=== PATIENT | female | born 1975 | race Caucasian/White ===

== ENCOUNTER → 2016-11-16 | Outpatient (CLI) | payer BC ==
--- NOTE | 2016-11-18 06:56 | MM ---
Reason for exam: screening (asymptomatic). Last mammogram was performed 1 year and 2 months ago. History: Patient is postmenopausal. Physical Findings: A clinical breast exam by your physician is recommended on an annual basis and results should be correlated with mammographic findings. MG Screening Mammo w CAD Bilateral CC and MLO view(s) were taken. Prior study comparison: September 18, 2015, bilateral MG screening mammo w CAD. April 20, 2013, bilateral digital screening mammo w/CAD. The breast tissue is heterogeneously dense. This may lower the sensitivity of mammography. No significant changes when compared with prior studies. ASSESSMENT: Negative, BI-RAD 1 RECOMMENDATION: Routine screening mammogram of both breasts in 1 year.
== END ==
LOC: RADMAMWWP 07:44
PROVIDERS: ATTEND Obstetrics & Gynecology
DX: Z12.31 Encounter for screening mammogram for malignant neoplasm of breast (principal)

== ENCOUNTER 2017-07-04 08:28 | Emergency (ER) | payer BC ==
[2017-07-04 08:36] VITALS: TEMP 98.2
[2017-07-04] MEDS ORDERED: SODIUM CHLORIDE 0.9% 500 ML IV STA (08:51)
--- NOTE | 2017-07-04 08:54 | ED ---
General Adult HPI - General Chief complaint: Recheck/Abnormal Lab/Rx Stated complaint: High Blood Pressure Time Seen by Provider: 07/04/17 08:36 Source: patient, RN notes reviewed, old records reviewed Mode of arrival: wheelchair Limitations: no limitations - History of Present Illness Initial comments: 41-year-old female presents for evaluation of elevated blood pressure. Patient states she's been taking her blood pressure at home, she's had several readings in the 150s to 160s systolic. This morning her blood pressure was again elevated she went to [facility] and had her blood pressure checked and it was in the 170s over 104. She was advised to present to the emergency department this morning. She did have an appointment with her primary care physician however she canceled this appointment and presented here for evaluation. She has no complaints the time my evaluation. She did have a headache yesterday which is nearly resolved at this time. No chest pain no shortness of breath. No abdominal pain. No nausea vomiting or diarrhea. No fever or chills. No extremity pain or swelling. - Related Data Home Medications Medication Instructions Recorded Confirmed ALPRAZolam [Xanax] 0.25 - 0.5 mg PO DAILY PRN 07/04/17 07/04/17 Ergocalciferol (Vitamin D2) 50,000 unit PO MO 07/04/17 07/04/17 [Vitamin D2] Loratadine-Pseudoeph 10-240 mg 1 tab PO DAILY 07/04/17 07/04/17 [Claritin-D 24 Hr] Multivitamins, Thera [Multivitamin 1 tab PO DAILY 07/04/17 07/04/17 (formulary)] Ranitidine HCl 150 mg PO DAILY 07/04/17 07/04/17 Allergies Allergy/AdvReac Type Severity Reaction Status Date / Time sulfamethoxazole Allergy Rash/Hives Verified 07/04/17 08:57 [From Bactrim] trimethoprim [From Bactrim] Allergy Rash/Hives Verified 07/04/17 08:57 Review of Systems ROS Statement: Those systems with pertinent positive or pertinent negative responses have been documented in the HPI. ROS Other: All systems not noted in ROS Statement are negative. Past Medical History Past Medical History: GERD/Reflux History of Any Multi-Drug Resistant Organisms: None Reported Past Surgical History: Section, Hysterectomy, Orthopedic Surgery Additional Past Surgical History / Comment(s): nasal surgery, right shoulder surgery Past Psychological History: No Psychological Hx Reported Smoking Status: Never smoker Past Alcohol Use History: None Reported Past Drug Use History: None Reported General Exam Limitations: no limitations General appearance: alert, in no apparent distress Head exam: Present: atraumatic, normocephalic Eye exam: Present: normal appearance, PERRL ENT exam: Present: normal exam Neck exam: Present: normal inspection. Absent: tenderness, meningismus Respiratory exam: Present: normal lung sounds bilaterally. Absent: respiratory distress, wheezes Cardiovascular Exam: Present: normal rhythm, tachycardia GI/Abdominal exam: Present: soft. Absent: distended, tenderness Extremities exam: Present: normal inspection, normal capillary refill. Absent: pedal edema, calf tenderness Back exam: Present: normal inspection. Absent: full ROM, tenderness Neurological exam: Present: alert, oriented X3, CN II-XII intact. Absent: motor sensory deficit Psychiatric exam: Present: normal affect, normal mood Skin exam: Present: warm, dry, intact. Absent: cyanosis, diaphoretic Course Vital Signs 07/04/17 08:32 Temperature 98.2 F Pulse Rate 112 H Respiratory 16 Rate Blood Pressure 137/72 O2 Sat by Pulse 98 Oximetry EKG Findings - EKG Comments: EKG Findings:: EKG: Sinus tachycardia, rate of 101, NH interval 120, QRS duration 88, QTC 438, no ST segment elevation or depression. Medical Decision Making - Medical Decision Making 41-year-old female presenting with asymptomatic hypertension. Blood pressure and emergency department is mildly elevated. Patient is somewhat concerned about this, she has been dealing with some stress. It is decided that laboratory studies and basic workup will be obtained. This includes an EKG which is sinus tach at 101 otherwise unremarkable. Chest x-ray which shows normal mediastinum, no pulmonary infiltrates. CBC CMP are unremarkable d-dimer is negative. Blood pressure on reevaluation is normal. Heart rate normalizes to low 90s. She will follow-up with her primary care physician. - Lab Data Result diagrams: 07/04/17 09:01 07/04/17 09:01 Lab Results 07/04/17 07/04/17 07/04/17 Range/Units 09:01 09:01 09:01 WBC 4.8 (3.8-10.6) k/uL RBC 4.51 (3.80-5.40) m/uL Hgb 13.3 (11.4-16.0) gm/dL Hct 40.3 (34.0-46.0) % MCV 89.2 (80.0-100.0) fL MCH 29.6 (25.0-35.0) pg MCHC 33.1 (31.0-37.0) g/dL RDW 12.8 (11.5-15.5) % Plt Count 246 (150-450) k/uL Neutrophils % 71 % Lymphocytes % 20 % Monocytes % 5 % Eosinophils % 2 % Basophils % 0 % Neutrophils # 3.4 (1.3-7.7) k/uL Lymphocytes # 1.0 (1.0-4.8) k/uL Monocytes # 0.2 (0-1.0) k/uL Eosinophils # 0.1 (0-0.7) k/uL Basophils # 0.0 (0-0.2) k/uL PT (9.0-12.0) sec INR (<1.2) APTT (22.0-30.0) sec D-Dimer (<0.60) mg/L FEU Sodium 142 (137-145) mmol/L Potassium 4.2 (3.5-5.1) mmol/L Chloride 106 (98-107) mmol/L Carbon Dioxide 23 (22-30) mmol/L Anion Gap 13 mmol/L BUN 14 (7-17) mg/dL Creatinine 0.70 (0.52-1.04) mg/dL Est GFR (CKD-EPI)AfAm >90 (>60 ml/min/1.73 sqM) Est GFR (CKD-EPI)NonAf >90 (>60 ml/min/1.73 sqM) Glucose 90 (74-99) mg/dL Calcium 9.4 (8.4-10.2) mg/dL Magnesium 1.9 (1.6-2.3) mg/dL Total Bilirubin 0.2 (0.2-1.3) mg/dL AST 22 (14-36) U/L ALT 32 (9-52) U/L Alkaline Phosphatase 74 (38-126) U/L Total Creatine Kinase 62 (30-135) U/L CK-MB (CK-2) <0.2 (0.0-2.4) ng/mL CK-MB (CK-2) Rel Index Total Protein 6.8 (6.3-8.2) g/dL Albumin 4.1 (3.5-5.0) g/dL 07/04/17 Range/Units 09:01 WBC (3.8-10.6) k/uL RBC (3.80-5.40) m/uL Hgb (11.4-16.0) gm/dL Hct (34.0-46.0) % MCV (80.0-100.0) fL MCH (25.0-35.0) pg MCHC (31.0-37.0) g/dL RDW (11.5-15.5) % Plt Count (150-450) k/uL Neutrophils % % Lymphocytes % % Monocytes % % Eosinophils % % Basophils % % Neutrophils # (1.3-7.7) k/uL Lymphocytes # (1.0-4.8) k/uL Monocytes # (0-1.0) k/uL Eosinophils # (0-0.7) k/uL Basophils # (0-0.2) k/uL PT 10.0 (9.0-12.0) sec INR 1.0 (<1.2) APTT 22.2 (22.0-30.0) sec D-Dimer 0.31 (<0.60) mg/L FEU Sodium (137-145) mmol/L Potassium (3.5-5.1) mmol/L Chloride (98-107) mmol/L Carbon Dioxide (22-30) mmol/L Anion Gap mmol/L BUN (7-17) mg/dL Creatinine (0.52-1.04) mg/dL Est GFR (CKD-EPI)AfAm (>60 ml/min/1.73 sqM) Est GFR (CKD-EPI)NonAf (>60 ml/min/1.73 sqM) Glucose (74-99) mg/dL Calcium (8.4-10.2) mg/dL Magnesium (1.6-2.3) mg/dL Total Bilirubin (0.2-1.3) mg/dL AST (14-36) U/L ALT (9-52) U/L Alkaline Phosphatase (38-126) U/L Total Creatine Kinase (30-135) U/L CK-MB (CK-2) (0.0-2.4) ng/mL CK-MB (CK-2) Rel Index Total Protein (6.3-8.2) g/dL Albumin (3.5-5.0) g/dL Disposition Clinical Impression: Asymptomatic hypertension Disposition: HOME SELF-CARE Condition: Good Instructions: Hypertension (ED) Is patient prescribed a controlled substance at d/c from ED?: No Referrals: Angel Gaxiola DO [Primary Care Provider] - 1-2 days Time of Disposition: 10:49
[2017-07-04 09:31] LABS: Basophils % (A) 0 %; Eosinophils # (A) 0.1 k/uL (0-0.7); Eosinophils % (A) 2 %; HCT 40.3 % (34.0-46.0); HGB 13.3 gm/dL (11.4-16.0); Lymphocytes % (A) 20 %; MCH 29.6 pg (25.0-35.0); MCHC 33.1 g/dL (31.0-37.0); MCV 89.2 fL (80.0-100.0); Mean Platelet Volume 6.7; Monocytes # (A) 0.2 k/uL (0-1.0); Monocytes % (A) 5 %; Neutrophils # (A) 3.4 k/uL (1.3-7.7); Neutrophils % (A) 71 %; Platelet Count 246 k/uL (150-450); RBC 4.51 m/uL (3.80-5.40); RDW 12.8 % (11.5-15.5); WBC 4.8 k/uL (3.8-10.6)
[2017-07-04 09:32] LABS: Partial Thromboplastin Time 22.2 sec (22.0-30.0)
[2017-07-04 09:36] LABS: ALT 32 U/L (9-52); AST 22 U/L (14-36); Albumin 4.1 g/dL (3.5-5.0); Alkaline Phosphatase 74 U/L (38-126); Anion Gap 13 mmol/L; Blood Urea Nitrogen 14 mg/dL (7-17); Calcium 9.4 mg/dL (8.4-10.2); Carbon Dioxide 23 mmol/L (22-30); Chloride 106 mmol/L (98-107); Glucose 90 mg/dL (74-99); Magnesium 1.9 mg/dL (1.6-2.3); Potassium 4.2 mmol/L (3.5-5.1); Sodium 142 mmol/L (137-145); Total Bilirubin 0.2 mg/dL (0.2-1.3); Total Protein 6.8 g/dL (6.3-8.2)
[2017-07-04 09:53] LABS: Creatine Kinase 62 U/L (30-135)
[2017-07-04 10:02] LABS: Creatine Kinase MB <0.2 ng/mL (0.0-2.4)
[2017-07-04 10:35] LABS: D-Dimer 0.31 mg/L FEU (<0.60)
[2017-07-04 10:48] VITALS: BP 127/76; PULSE 88; RESP 17
--- NOTE | 2017-07-04 10:54 | XR ---
EXAMINATION TYPE: XR chest 2V DATE OF EXAM: 07/04/2017 COMPARISON: Prior chest x-ray 12/17/2010 HISTORY: Chest pain, hypertension TECHNIQUE: Frontal and lateral views of the chest are obtained. FINDINGS: There is no focal air space opacity, pleural effusion, or pneumothorax seen. The cardiac silhouette size is within normal limits. The osseous structures are intact. There are overlying car diac leads. There is a thoracic spinal curvature. IMPRESSION: No acute cardiopulmonary process.
== END 2017-07-04 11:11 | disposition home or self-care (01) ==
LOC: EC 08:28
DX: I10 Essential (primary) hypertension (principal); K21.9 Gastro-esophageal reflux disease without esophagitis; Z79.899 Other long term (current) drug therapy; Z88.2 Allergy status to sulfonamides
CPT/HCPCS: 36415; 71046; 80053; 82550; 82553; 83735; 85025; 85379; 85610; 85730; 93005; 96360; 99284

== ENCOUNTER → 2017-11-23 | Outpatient (CLI) | payer BC ==
--- NOTE | 2017-11-24 12:38 | MM ---
Reason for exam: screening (asymptomatic). Last mammogram was performed 1 year ago. History: Patient is postmenopausal. Physical Findings: A clinical breast exam by your physician is recommended on an annual basis and results should be correlated with mammographic findings. MG 3D Screening Mammo W/Cad Bilateral CC and MLO view(s) were taken. Prior study comparison: November 16, 2016, bilateral MG screening mammo w CAD. September 18, 2015, bilateral MG screening mammo w CAD. The breast tissue is heterogeneously dense. This may lower the sensitivity of mammography. Finding: There is a stable low density circumscribed round mass in the upper outer quadrant, posterior depth of the left breast. No suspicious abnormality. No significant changes in finding since November 16, 2016 and September 18, 2015. ASSESSMENT: Benign, BI-RAD 2 RECOMMENDATION: Routine screening mammogram of both breasts in 1 year.
== END | disposition home or self-care (01) ==
LOC: RADMAMWWP 07:54
PROVIDERS: ATTEND Obstetrics & Gynecology
DX: Z12.31 Encounter for screening mammogram for malignant neoplasm of breast (principal)
CPT/HCPCS: 77063; 77067

== ENCOUNTER → 2017-12-07 | Outpatient (CLI) | payer BC ==
--- NOTE | 2017-12-07 10:53 | USB ---
Reason for exam: clinical finding. History: Patient is postmenopausal. Physical Findings: Nurse Summary: BB upper outer quadrant (nurse kp). US Breast LT Left complete breast ultrasound includes all four quadrants, the retroareolar region and axilla. Finding demonstrates a 0.7 x 0.7 x 0.3cm oval, cystic lesion at 2 o'clock. These results were verbally communicated with the patient and result sheet given to the patient on 12/07/17. ASSESSMENT: Probably benign, BI-RAD 3 RECOMMENDATION: Ultrasound of the left breast in 6 months.
== END | disposition home or self-care (01) ==
LOC: RADUSWWP 08:07
PROVIDERS: ATTEND Family Medicine
DX: R92.8 Other abnormal and inconclusive findings on diagnostic imaging of breast (principal); N63.21 Unspecified lump in the left breast, upper outer quadrant

== ENCOUNTER → 2018-01-25 | Outpatient (CLI) | payer BC ==
--- NOTE | 2018-01-25 23:00 | MR ---
EXAMINATION TYPE: MR lumbar spine wo con DATE OF EXAM: 01/25/2018 COMPARISON: MRI lumbar spine July 12, 2013 HISTORY: LBP, BLE radic/weakness/numbness x several years TECHNIQUE: Multiplanar, multisequence imaging of the lumbar spine is performed without IV contrast. FINDINGS: Sagittal images of the lumbar spine show vertebral body heights and alignment to appear sat isfactory. Multilevel disc desiccation is present. Moderate disc space narrowing at L5-S1 level is r edemonstrated with posterior disc herniation. Mild disc space L3-L4 level is redemonstrated and stabl e. The conus medullaris is normal in position and signal ending at inferior L1 level. The bone marro w signal intensity is within normal limits. Axial images at T12-L1 level redemonstrates broad-based disc protrusion effacing the anterior thecal sac on axial image 28, bilateral neural foramina are patent. No significant change from prior. Axial images at L1-L2 level remain within normal limits. Axial images at L2-L3 level show mild to moderate broad-based posterior disc protrusion mildly effaci ng anterior thecal sac on axial image 18, bilateral neural foramina remain patent. No significant joan nge from prior. Axial images at L3-L4 level show mild/moderate broad-based posterior disc protrusion mildly effacing anterior thecal sac on axial image 13, bilateral neural foramina remain patent. No significant change from prior. Axial images at the L4-L5 level shows mild facet degenerative changes bilaterally. Mild broad-based posterior disc protrusion is seen minimally effacing anterior thecal sac. There is mild left-sided an terior inferior neural foraminal narrowing. Right-sided neural foramina is patent. Axial images at the L5-S1 level redemonstrate prominent central disc protrusion minimally effacing an terior thecal sac with mild facet degenerative changes bilaterally on axial image 2. Bilateral neural foramina are patent. Small hemangioma posterior L5 vertebral body level is noted sagittal image 11 t o right of midline. No suspicious incidental retroperitoneal findings are seen. IMPRESSION: Multilevel degenerative changes in lumbar spine as detailed above without significant joan nge or progression from 2014 MRI. Largest focal disc herniation is noted L5-S1 level.
== END | disposition home or self-care (01) ==
LOC: RADMRIMAIN 20:04
PROVIDERS: ATTEND Family Medicine
DX: M51.27 Other intervertebral disc displacement, lumbosacral region (principal); M47.816 Spondylosis without myelopathy or radiculopathy, lumbar region
CPT/HCPCS: 72148

== ENCOUNTER → 2018-11-27 | Outpatient (CLI) | payer BC ==
--- NOTE | 2018-11-27 13:18 | MM ---
Reason for exam: screening (asymptomatic). Last mammogram was performed 1 year ago. History: Patient is postmenopausal. Physical Findings: A clinical breast exam by your physician is recommended on an annual basis and results should be correlated with mammographic findings. MG 3D Screening Mammo W/Cad Bilateral CC and MLO view(s) were taken. Prior study comparison: November 23, 2017, bilateral MG 3d screening mammo w/cad. November 16, 2016, bilateral MG screening mammo w CAD. The breast tissue is heterogeneously dense. This may lower the sensitivity of mammography. There is a mammographically stable oval left middle depth mass, cystic on prior ultrasound. No suspicious abnormality. Superior left posterior depth asymmetry is also stable. No significant changes when compared with prior studies. ASSESSMENT: Benign, BI-RAD 2 RECOMMENDATION: Routine screening mammogram of both breasts in 1 year.
== END ==
LOC: RADMAMWWP 07:42
PROVIDERS: ATTEND Obstetrics & Gynecology
DX: Z12.31 Encounter for screening mammogram for malignant neoplasm of breast (principal)
CPT/HCPCS: 77063; 77067

== ENCOUNTER 2019-03-20 21:54 | Emergency (ER) | payer BC ==
[2019-03-20 22:00] VITALS: BP 139/91; PULSE 110; RESP 24
[2019-03-20] MEDS ORDERED: IBUPROFEN 600 MG TAB PO STA (22:13)
[2019-03-20] MEDS ORDERED: SODIUM CHLORIDE 0.9% 500 ML 500 ML IV STA ×2 (22:13→23:40)
[2019-03-20] MEDS ORDERED: SODIUM CHLORIDE 0.9% 1,000 ML IV STA ×2 (22:13)
[2019-03-20] MEDS ORDERED: ACETAMINOPHEN TAB 500 MG TAB PO STA (22:13)
--- NOTE | 2019-03-20 22:13 | ED ---
Fever HPI - General Chief Complaint: Fever Stated Complaint: cough Time Seen by Provider: 03/20/19 22:00 Source: patient, RN notes reviewed, old records reviewed Mode of arrival: ambulatory Limitations: no limitations - History of Present Illness Initial Comments: There is a 43-year-old female DF for evaluation patient closely for evaluation regards to fever. Patient's has had symptoms since Tuesday. He has had again severe fever with cough and diffuse body aches and pains, occasional headache. Patient has not been feeling well. No medical history takes no medications. Today with nausea and vomiting MD Complaint: fever, weakness, other (Cough) -: days(s) Temperature Source: subjective Associated Symptoms: chills, myalgias, headache, cough Treatments Prior to Arrival: none - Related Data Home Medications Medication Instructions Recorded Confirmed ALPRAZolam [Xanax] 0.25 - 0.5 mg PO DAILY PRN 07/04/17 07/04/17 Ergocalciferol (Vitamin D2) 50,000 unit PO MO 07/04/17 07/04/17 [Vitamin D2] Loratadine-Pseudoeph 10-240 mg 1 tab PO DAILY 07/04/17 07/04/17 [Claritin-D 24 Hr] Multivitamins, Thera [Multivitamin 1 tab PO DAILY 07/04/17 07/04/17 (formulary)] RX: Ranitidine HCl 150 mg PO DAILY 07/04/17 07/04/17 Allergies Allergy/AdvReac Type Severity Reaction Status Date / Time sulfamethoxazole Allergy Rash/Hives Verified 03/20/19 21:59 [From Bactrim] trimethoprim [From Bactrim] Allergy Rash/Hives Verified 03/20/19 21:59 Review of Systems ROS Statement: Those systems with pertinent positive or pertinent negative responses have been documented in the HPI. ROS Other: All systems not noted in ROS Statement are negative. Past Medical History Past Medical History: GERD/Reflux History of Any Multi-Drug Resistant Organisms: None Reported Past Surgical History: Back Surgery, Section, Hysterectomy, Orthopedic Surgery Additional Past Surgical History / Comment(s): nasal surgery, right shoulder surgery Past Psychological History: Anxiety Smoking Status: Never smoker Past Alcohol Use History: None Reported Past Drug Use History: None Reported General Exam Limitations: no limitations General appearance: alert, in no apparent distress Head exam: Present: atraumatic, normocephalic, normal inspection Eye exam: Present: normal appearance, PERRL, EOMI. Absent: scleral icterus, conjunctival injection, periorbital swelling ENT exam: Present: normal exam, mucous membranes moist Neck exam: Present: normal inspection. Absent: tenderness, meningismus, lympha denopathy Respiratory exam: Present: normal lung sounds bilaterally. Absent: respiratory distress, wheezes, rales, rhonchi, stridor Cardiovascular Exam: Present: normal rhythm, tachycardia, normal heart sounds. Absent: systolic murmur, diastolic murmur, rubs, gallop, clicks GI/Abdominal exam: Present: soft, normal bowel sounds. Absent: distended, tenderness, guarding, rebound, rigid Extremities exam: Present: normal inspection, full ROM, normal capillary refill. Absent: tenderness, pedal edema, joint swelling, calf tenderness Back exam: Present: normal inspection Neurological exam: Present: alert, oriented X3, CN II-XII intact Psychiatric exam: Present: normal affect, normal mood Skin exam: Present: warm, dry, intact, normal color. Absent: rash Course Vital Signs 03/20/19 03/20/19 21:57 23:19 Temperature 99.9 F H 98.6 F Pulse Rate 110 H Respiratory 24 Rate Blood Pressure 139/91 O2 Sat by Pulse 99 Oximetry - Reevaluation(s) Reevaluation #1: 03/20/19 22:26 Medical records reviewed Reevaluation #2: 03/20/19 23:54 Patient feels significantly improved here in the ER Medical Decision Making - Medical Decision Making 3 female DF for evaluation not feeling well 4-5 days patient is positive for influenza, outside of treatment O 2. Patient given adequate hydration tolerated oral intake in the ER patient can be discharged home - Lab Data Result diagrams: 03/20/19 23:00 03/20/19 23:00 Lab Results 03/20/19 03/20/19 03/20/19 Range/Units 23:00 23:00 23:00 WBC 5.4 (3.8-10.6) k/uL RBC 4.92 (3.80-5.40) m/uL Hgb 14.5 (11.4-16.0) gm/dL Hct 43.3 (34.0-46.0) % MCV 87.9 (80.0-100.0) fL MCH 29.4 (25.0-35.0) pg MCHC 33.4 (31.0-37.0) g/dL RDW 12.3 (11.5-15.5) % Plt Count 261 (150-450) k/uL Neutrophils % 74 % Lymphocytes % 18 % Monocytes % 4 % Eosinophils % 1 % Basophils % 1 % Neutrophils # 4.0 (1.3-7.7) k/uL Lymphocytes # 1.0 (1.0-4.8) k/uL Monocytes # 0.2 (0-1.0) k/uL Eosinophils # 0.1 (0-0.7) k/uL Basophils # 0.1 (0-0.2) k/uL Sodium 136 L (137-145) mmol/L Potassium 3.8 (3.5-5.1) mmol/L Chloride 103 (98-107) mmol/L Carbon Dioxide 20 L (22-30) mmol/L Anion Gap 13 mmol/L BUN 11 (7-17) mg/dL Creatinine 0.62 (0.52-1.04) mg/dL Est GFR (CKD-EPI)AfAm >90 (>60 ml/min/1.73 sqM) Est GFR (CKD-EPI)NonAf >90 (>60 ml/min/1.73 sqM) Glucose 100 H (74-99) mg/dL Plasma Lactic Acid Quentin 1.2 (0.7-2.0) mmol/L Calcium 9.7 (8.4-10.2) mg/dL Total Bilirubin 0.7 (0.2-1.3) mg/dL AST 32 (14-36) U/L ALT 20 (4-34) U/L Alkaline Phosphatase 85 (38-126) U/L Total Protein 8.1 (6.3-8.2) g/dL Albumin 4.7 (3.5-5.0) g/dL Influenza Type A RNA (Not Detectd) Influenza Type B (PCR) (Not Detectd) 03/20/19 Range/Units 23:10 WBC (3.8-10.6) k/uL RBC (3.80-5.40) m/uL Hgb (11.4-16.0) gm/dL Hct (34.0-46.0) % MCV (80.0-100.0) fL MCH (25.0-35.0) pg MCHC (31.0-37.0) g/dL RDW (11.5-15.5) % Plt Count (150-450) k/uL Neutrophils % % Lymphocytes % % Monocytes % % Eosinophils % % Basophils % % Neutrophils # (1.3-7.7) k/uL Lymphocytes # (1.0-4.8) k/uL Monocytes # (0-1.0) k/uL Eosinophils # (0-0.7) k/uL Basophils # (0-0.2) k/uL Sodium (137-145) mmol/L Potassium (3.5-5.1) mmol/L Chloride (98-107) mmol/L Carbon Dioxide (22-30) mmol/L Anion Gap mmol/L BUN (7-17) mg/dL Creatinine (0.52-1.04) mg/dL Est GFR (CKD-EPI)AfAm (>60 ml/min/1.73 sqM) Est GFR (CKD-EPI)NonAf (>60 ml/min/1.73 sqM) Glucose (74-99) mg/dL Plasma Lactic Acid Quentin (0.7-2.0) mmol/L Calcium (8.4-10.2) mg/dL Total Bilirubin (0.2-1.3) mg/dL AST (14-36) U/L ALT (4-34) U/L Alkaline Phosphatase (38-126) U/L Total Protein (6.3-8.2) g/dL Albumin (3.5-5.0) g/dL Influenza Type A RNA Detected H (Not Detectd) Influenza Type B (PCR) Not Detected (Not Detectd) - Radiology Data Radiology results: report reviewed (Chest x-ray is negative for acute disease), image reviewed Disposition Clinical Impression: Influenza, Fever Disposition: HOME SELF-CARE Condition: Good Instructions (If sedation given, give patient instructions): Fever in Adults (ED), Influenza (ED) Is patient prescribed a controlled substance at d/c from ED?: No Referrals: Angel Gaxiola DO [Primary Care Provider] - 1-2 days
[2019-03-20 23:27] LABS: Basophils # (A) 0.1 k/uL (0-0.2); Basophils % (A) 1 %; Eosinophils # (A) 0.1 k/uL (0-0.7); Eosinophils % (A) 1 %; HCT 43.3 % (34.0-46.0); HGB 14.5 gm/dL (11.4-16.0); Lymphocytes % (A) 18 %; MCH 29.4 pg (25.0-35.0); MCHC 33.4 g/dL (31.0-37.0); MCV 87.9 fL (80.0-100.0); Mean Platelet Volume 7.2; Monocytes # (A) 0.2 k/uL (0-1.0); Monocytes % (A) 4 %; Neutrophils % (A) 74 %; Platelet Count 261 k/uL (150-450); RBC 4.92 m/uL (3.80-5.40); RDW 12.3 % (11.5-15.5); WBC 5.4 k/uL (3.8-10.6)
--- NOTE | 2019-03-20 23:32 | XR ---
EXAMINATION TYPE: XR chest 2V DATE OF EXAM: 03/20/2019 COMPARISON: 07/04/2017 HISTORY: Cough TECHNIQUE: FINDINGS: Heart and mediastinum are normal. Lungs are clear. Diaphragm is normal. Bony thorax appears normal. IMPRESSION: Normal chest. No change.
[2019-03-20 23:33] LABS: ALT 20 U/L (4-34); AST 32 U/L (14-36); African American GFR (CKD) >90 (>60 ml/min/1.73 sqM); Albumin 4.7 g/dL (3.5-5.0); Alkaline Phosphatase 85 U/L (38-126); Anion Gap 13 mmol/L; Blood Urea Nitrogen 11 mg/dL (7-17); Calcium 9.7 mg/dL (8.4-10.2); Carbon Dioxide 20 mmol/L (22-30); Chloride 103 mmol/L (98-107); Glucose 100 mg/dL (74-99); Non-African American GFR(CKD) >90 (>60 ml/min/1.73 sqM); Potassium 3.8 mmol/L (3.5-5.1); Sodium 136 mmol/L (137-145); Total Bilirubin 0.7 mg/dL (0.2-1.3); Total Protein 8.1 g/dL (6.3-8.2)
[2019-03-20] MEDS ORDERED: DEXAMETHASONE SOD PHOSPHATE 10 MG/ML 1 ML VIAL IV STA (23:53)
[2019-03-21 00:41] VITALS: TEMP 98.7
== END 2019-03-21 00:41 | disposition home or self-care (01) ==
LOC: EC 21:54
DX: J11.1 Influenza due to unidentified influenza virus with other respiratory manifestations (principal); F41.9 Anxiety disorder, unspecified; K21.9 Gastro-esophageal reflux disease without esophagitis; Z79.899 Other long term (current) drug therapy; Z88.2 Allergy status to sulfonamides; Z88.1 Allergy status to other antibiotic agents
CPT/HCPCS: 36415; 80053; 83605; 85025; 87040; 87502; 71046; 99284; 96374; 96361; J1100

== ENCOUNTER → 2019-11-30 | Outpatient (CLI) | payer BC ==
--- NOTE | 2019-12-04 11:11 | MM ---
Reason for exam: screening (asymptomatic). Last mammogram was performed 1 year ago. History: Patient is postmenopausal. Physical Findings: A clinical breast exam by your physician is recommended on an annual basis and results should be correlated with mammographic findings. MG 3D Screening Mammo W/Cad Bilateral CC and MLO view(s) were taken. Prior study comparison: November 27, 2018, bilateral MG 3d screening mammo w/cad. November 23, 2017, bilateral MG 3d screening mammo w/cad. November 16, 2016, bilateral MG screening mammo w CAD. The breast tissue is heterogeneously dense. This may lower the sensitivity of mammography. There is chronic nodularity in the left breast laterally, apparent on 3D images. No significant changes when compared with prior studies. ASSESSMENT: Negative, BI-RAD 1 RECOMMENDATION: Routine screening mammogram of both breasts in 1 year.
== END | disposition home or self-care (01) ==
LOC: RADMAMWWP 09:54
PROVIDERS: ATTEND Obstetrics & Gynecology
DX: Z12.31 Encounter for screening mammogram for malignant neoplasm of breast (principal)
CPT/HCPCS: 77063; 77067

== ENCOUNTER → 2020-07-18 | Outpatient (CLI) | payer BC ==
--- NOTE | 2020-07-18 12:30 | MR ---
EXAMINATION TYPE: MR lumbar spine wo con DATE OF EXAM: 07/18/2020 COMPARISON: MRI lumbar spine January 25, 2018 HISTORY: Low back pain, radiculopathy TECHNIQUE: Multiplanar, multisequence imaging of the lumbar spine is performed without IV contrast. FINDINGS: Sagittal images of the lumbar spine show vertebral body heights and alignment to remain sta ble and satisfactory. Multilevel disc desiccation is redemonstrated. Moderate to advanced disc space narrowing with vacuum disc phenomenon and heterogeneous Modic type I and type III endplate changes a t L5-S1 level is redemonstrated . The conus medullaris remains normal in position and signal ending a t mid L1 level. Mild multilevel anterior spurring. Axial images at T12-L1 level redemonstrates broad-based disc protrusion effacing the anterior thecal sac on axial image 28, bilateral neural foramina are patent. No significant change from prior. Axial images at L1-L2 level remain within normal limits. Axial images at L2-L3 level redemonstrate mild to moderate broad-based posterior disc protrusion mild ly effacing anterior thecal sac on axial image 18, bilateral neural foramina remain patent. No signif icant change from prior. Axial images at L3-L4 level redemonstrate mild/moderate broad disc bulge mildly effacing anterior the twila sac on axial image 13, bilateral neural foramina remain patent. No significant change from prior. Axial images at the L4-L5 level show mild/moderate left greater than right facet degenerative changes with slight interval progression. Mild broad-based posterior disc protrusion is seen minimally effa cing anterior thecal sac. There is mild left-sided anterior inferior neural foraminal narrowing redem onstrated. Right-sided neural foramina is patent. Axial images at the L5-S1 level show improved central disc protrusion current study. [id number] facet degenerative changes bilaterally left greater than right redemonstrated are felt stable. Bilat eral neural foramina remain patent. Small hemangioma posterior L5 vertebral body level is redemonstra philip sagittal image 11 to right of midline. Spinal canal is preserved currently. No suspicious incidental retroperitoneal findings are seen. Paraspinal muscle bulk is maintained. IMPRESSION: Multilevel degenerative changes in lumbar spine as detailed above with improved disc ana maria iation L5-S1 level. Slightly more prominent facet arthropathy lower lumbar spine otherwise no signifi cant interval degenerative progression from 2018 MRI.
== END | disposition home or self-care (01) ==
LOC: RADMRIMAIN 11:37
PROVIDERS: ATTEND Family Medicine
DX: M47.26 Other spondylosis with radiculopathy, lumbar region (principal); M51.16 Intervertebral disc disorders with radiculopathy, lumbar region; M99.73 Connective tissue and disc stenosis of intervertebral foramina of lumbar region
CPT/HCPCS: 72148

== ENCOUNTER → 2021-01-01 | Outpatient (CLI) | payer BC ==
--- NOTE | 2021-01-05 09:40 | MM ---
Reason for exam: screening (asymptomatic). Last mammogram was performed 1 year and 1 month ago. History: Patient is postmenopausal. Physical Findings: A clinical breast exam by your physician is recommended on an annual basis and results should be correlated with mammographic findings. MG 3D Screening Mammo W/Cad Bilateral CC and MLO view(s) were taken. Prior study comparison: November 30, 2019, bilateral MG 3d screening mammo w/cad. November 27, 2018, bilateral MG 3d screening mammo w/cad. There are scattered fibroglandular densities. There is chronic nodularity in the left breast, no change from 2018 mammogram left upper outer quadrant. There is no new dominant lesion. ASSESSMENT: Benign, BI-RAD 2 RECOMMENDATION: Routine screening mammogram of both breasts in 1 year.
== END | disposition home or self-care (01) ==
LOC: RADMAMWWP 14:52
PROVIDERS: ATTEND Obstetrics & Gynecology
DX: Z12.31 Encounter for screening mammogram for malignant neoplasm of breast (principal)
CPT/HCPCS: 77063; 77067

== ENCOUNTER → 2021-07-01 | Outpatient (CLI) | payer BC, OTHER ==
[2021-07-01 16:36] VITALS: BP 127/85; PULSE 80; TEMP 98.2; BMI 34.9
--- NOTE | 2021-07-01 17:05 | P.HPBAR ---
Bariatric H&P - History & Physicial H&P Date: 07/01/21 History & Physicial: Visit/CC: new patient Patient initial contact: Initial weight: Initial weight in pounds: Height: 5 ft 5.25 in Initial BMI: e Last weight: Current weight: 96.162 kg Current weight in pounds: 212.00 Current BMI: 34.9 [place] body weight (based on NIH guidelines): 57.266 kg Excess body weight loss: The patient is a 45 year-old F who presents for Bariatric Assessment. She is looking into sleeve. She had back surgery in 2019. Back surgery done by Dr. Brady. Recommendations from Jose Antonio for weight loss. No moderate reflux. No stomach cancer. She EGD and colon. She has hip pain on the left side, no knee p ain. No ankle pain. She has feet pain on the left. She has numbness of the left lateral leg. No snoring. Sleep study is negative. She has chronic fatigue. She needs medical supervised weight loss for adipex. Highest weight is present. Past Medical History Past Medical History: GERD/Reflux, Osteoarthritis (OA) History of Any Multi-Drug Resistant Organisms: None Reported Past Surgical History: Back Surgery, Section, Hysterectomy, Orthopedic Surgery Additional Past Surgical History / Comment(s): nasal surgery, right shoulder surgery Past Anesthesia/Blood Transfusion Reactions: No Reported Reaction Past Psychological History: Anxiety Smoking Status: Never smoker Past Alcohol Use History: Occasional Past Drug Use History: None Reported Surgical - Exam Vital Signs Temp Pulse BP 98.2 F 80 127/85 07/01/21 16:27 07/01/21 16:27 07/01/21 16:27 Bariatric Checklist Checklist: Plan: Checklist: EGD: 1. Hiatal hernia: 2. H. Pylori: HgbA1c: Vitamin D: Smoking: Never smoker Primary care physician referral: Dr. Gaxiola Psychiatry clearance: Cardiology clearance: Sleep study: Diet journal: VTE risk score: VTE risk level: Rehab needs at discharge:
== END | disposition home or self-care (01) ==
LOC: BARWHC3 14:57
PROVIDERS: ATTEND Surgery Plastic and Reconstructive Surgery
DX: Z48.815 Encounter for surgical aftercare following surgery on the digestive system (principal)
CPT/HCPCS: 99211

== ENCOUNTER → 2021-08-20 | Outpatient (CLI) | payer BC, OTHER ==
--- NOTE | 2021-08-20 16:39 | XR ---
EXAMINATION TYPE: XR chest 2V DATE OF EXAM: 08/20/2021 COMPARISON: NONE HISTORY: Chest pain TECHNIQUE: Frontal and lateral views of the chest are obtained. FINDINGS: There is no focal air space opacity. No evidence for pneumothorax. No pleural effusion. The cardiac silhouette size is within normal limits. The osseous structures are grossly intact. IMPRESSION: 1. No acute cardiopulmonary process.
== END | disposition home or self-care (01) ==
LOC: RADXRMAIN 16:13
PROVIDERS: ATTEND Family Medicine
DX: U07.1 COVID-19 (principal); J40 Bronchitis, not specified as acute or chronic
CPT/HCPCS: 71046

== ENCOUNTER 2021-08-24 07:29 | Day surgery (SDC) | payer BC, OTHER ==
[2021-08-18 15:56] VITALS: BMI 34.0
[~2021-08-24 07:29] MED LIST: LACTATED RINGERS 1,000 ML IV SCH
--- NOTE | 2021-08-24 07:43 | P.GSHP ---
History of Present Illness H&P Date: 08/24/21 CHIEF COMPLAINT: GERD HISTORY OF PRESENT ILLNESS: The patient is a 45-year-old female who presents reports gastroesophageal reflux disease. Upper endoscopy was offered for further evaluation and management. PAST MEDICAL HISTORY: Please see list. PAST SURGICAL HISTORY: Please see list. MEDICATIONS: Please see list. ALLERGIES: Please see list. SOCIAL HISTORY: No illicit drug use FAMILY HISTORY: No reports of Crohn disease or ulcerative colitis. REVIEW OF ORGAN SYSTEMS: CONSTITUTIONAL: No reports of fevers or chills. GI: Denies any blood in stools or constipation. PHYSICAL EXAM: VITAL SIGNS: Stable GENERAL: Well-developed and pleasant in no acute distress. HEENT: No scleral icterus. Extraocular movements grossly intact. Moist buccal mucosa. NECK: Supple without lymphadenopathy. CHEST: Unlabored respirations. Equal bilateral excursions. CARDIOVASCULAR: Regular rate and rhythm. Distal 2+ pulses. ABDOMEN: Soft, nondistended. MUSCULOSKELETAL: No clubbing, cyanosis, or edema. ASSESSMENT: 1. Gastroesophageal reflux disease PLAN: 1. Recommend proceeding with an upper endoscopy Past Medical History Past Medical History: GERD/Reflux, Osteoarthritis (OA) History of Any Multi-Drug Resistant Organisms: None Reported Past Surgical History: Back Surgery, Section, Hysterectomy, Orthopedic Surgery Additional Past Surgical History / Comment(s): nasal surgery, right shoulder rotator cuff surgery, C/S x 2, left thumb surgery Past Anesthesia/Blood Transfusion Reactions: No Reported Reaction Smoking Status: Never smoker - Past Family History Father Family Medical History: Cancer Additional Family Medical History / Comment(s): lung cancer Medications and Allergies Home Medications Medication Instructions Recorded Confirmed Type ALPRAZolam [Xanax] 0.25 - 0.5 mg PO DAILY PRN 07/04/17 08/18/21 History Loratadine-Pseudoeph 10-240 mg 1 tab PO DAILY PRN 07/04/17 08/18/21 History [Claritin-D 24 Hr] Escitalopram [Lexapro] 10 mg PO DAILY 07/01/21 08/18/21 History Biotin(Dose Unknown) 1 tab PO DAILY 08/18/21 08/18/21 History Vitamin C(Dose Unknown) 1 tab PO DAILY 08/18/21 08/18/21 History Vitamin D(Dose Unknown) 1 tab PO DAILY 08/18/21 08/18/21 History Zinc(Dose Unknown) 1 tab PO DAILY 08/18/21 08/18/21 History Allergies Allergy/AdvReac Type Severity Reaction Status Date / Time sulfamethoxazole Allergy Rash/Hives Verified 08/18/21 15:46 [From Bactrim] trimethoprim [From Bactrim] Allergy Rash/Hives Verified 08/18/21 15:46
[2021-08-24 07:57] VITALS: TEMP 98.2
[2021-08-24] MEDS ORDERED: LIDOCAINE 1% (10MG/ML) FOR IV START INTRADERMA ONE (08:03)
[2021-08-24] MEDS ORDERED: PROPOFOL 10 MG/ML 20 ML VIAL IV ONE (08:30)
[2021-08-24] MEDS ORDERED: LIDOCAINE 2% INJ 20 MG/ML (2 ML VIAL) ONE (08:30)
--- NOTE | 2021-08-24 08:42 | P.PCN ---
Date of Procedure: 08/24/21 Description of Procedure: PREOPERATIVE DIAGNOSIS: Gastroesophageal reflux disease. POSTOPERATIVE DIAGNOSIS: Gastroesophageal reflux disease. Gastritis. OPERATION: Esophagogastroduodenoscopy with biopsies along antrum and duodenum SURGEON: Savanna Jones MD ANESTHESIA: MAC. INDICATIONS: The patient is a 45-year-old female who presents with reflux disease. Benefits and risks of the procedure were described. Informed consent was obtained. DESCRIPTION: The patient was brought into the endoscopy suite and laid in the left lateral decubitus position. An Olympus gastroscope was passed along the posterior oropharynx down to the distal esophagus where the squamocolumnar junction was encountered at 40 cm from the incisors. The stomach was entered and no bile reflux was found. Additional findings are listed below. Biopsies with cold forceps were obtained of the antrum. The first through third portion of the duodenum was examined. Retroflexion of the scope confirmed Hill grade 2 lower esophageal valve. The squamocolumnar junction demonstrated LA grade B erosive esophagitis. The stomach was desufflated. The patient tolerated the procedure well. FINDINGS: Squamocolumnar junction 40 cm from the incisors. Diaphragmatic hiatus at 40 cm. Hill grade 2 lower esophageal valve. LA grade B erosive esophagitis. Biopsies of the duodenum for duodenitis Chronic gastritis with recent bleed RECOMMENDATIONS: Upper endoscopy as needed.
--- NOTE | 2021-08-24 09:03 | P.PCN ---
Date of Procedure: 08/24/21 Description of Procedure: PREOPERATIVE DIAGNOSIS: Colonoscopy screening POSTOPERATIVE DIAGNOSIS: Tubular adenoma splenic flexure Sigmoid diverticulosis Internal hemorrhoids, grade 2 OPERATION: Colonoscopy to the ileocecal valve and appendiceal orifice, cecum Colonoscopy with hot snare polypectomy SURGEON: Savanna Jones MD. ANESTHESIA: MAC. INDICATIONS: The patient is an 45-year-old female who presents colon screening. Benefits and risks were described and informed consent was obtained. DESCRIPTION OF PROCEDURE: The patient had undergone Sutab prep. The patient had been brought into the operating room and laid in the left lateral decubitus position. After adequate intravenous sedation, the rectum was examined with 2% lidocaine jelly. No external hemorrhoids were encountered. The rectal tone was within normal limits. No lesions were palpated in the rectal vault. An Olympus colonoscope was advanced until the cecum, ileocecal valve and appendiceal orifice were clearly viewed. The prep was excellent. Sigmoid diverticulosis was encountered. Colonic polyps were found and removed. No evidence of focal colitis was found. Retroflexion of the scope demonstrated grade 2 internal hemorrhoids without active bleeding or inflammation. The colon was desufflated. The patient had tole rated the procedure well. Withdrawal time was over 6 minutes. FINDINGS: Aronchick preparation quality scale 1 (1-5) Internal hemorrhoids, grade 2 No external hemorrhoids No arteriovenous malformations. Sigmoid diverticulosis Removal of 1 polyps: - Snare polypectomy 50 cm from the anal verge, 8 mm flat villous adenoma polyp, splenic flexure No focal colitis. RECOMMENDATIONS: Repeat colonoscopy 3 years, 2024 Plan - Discharge Summary New Discharge Prescriptions: Continue Loratadine-Pseudoeph 10-240 mg [Claritin-D 24 Hour] 1 tab PO DAILY PRN PRN Reason: allergies ALPRAZolam [Xanax] 0.25 - 0.5 mg PO DAILY PRN PRN Reason: Anxiety Zinc(Dose Unknown) 1 tab PO DAILY Vitamin D(Dose Unknown) 1 tab PO DAILY Vitamin C(Dose Unknown) 1 tab PO DAILY Biotin(Dose Unknown) 1 tab PO DAILY Escitalopram [Lexapro] 10 mg PO DAILY Discharge Medication List ALPRAZolam [Xanax] 0.25 - 0.5 mg PO DAILY PRN 07/04/17 [History] Loratadine-Pseudoeph 10-240 mg [Claritin-D 24 Hour] 1 tab PO DAILY PRN 07/04/17 [History] Escitalopram [Lexapro] 10 mg PO DAILY 07/01/21 [History] Biotin(Dose Unknown) 1 tab PO DAILY 08/18/21 [History] Vitamin C(Dose Unknown) 1 tab PO DAILY 08/18/21 [History] Vitamin D(Dose Unknown) 1 tab PO DAILY 08/18/21 [History] Zinc(Dose Unknown) 1 tab PO DAILY 08/18/21 [History] [facility]ment[facility]Ref[facility] [place] [facility] [place] [facility] Patient Instructions/Handouts: Colorectal Polyps (GEN), Diverticulosis Diet ( GEN), Diverticulosis (DC) Activity/Diet/Wound Care/Special Instructions: Baby colonoscopy 3 years, 2024 Discharge Disposition: HOME SELF-CARE
[2021-08-24 09:20] VITALS: BP 120/84; PULSE 70; RESP 14
== END 2021-08-24 09:36 | disposition home or self-care (01) ==
LOC: ORWHC2ENDO 07:29
PROVIDERS: ATTEND Surgery Plastic and Reconstructive Surgery
DX: Z12.11 Encounter for screening for malignant neoplasm of colon (principal); D12.3 Benign neoplasm of transverse colon; K57.30 Diverticulosis of large intestine without perforation or abscess without bleeding; K64.1 Second degree hemorrhoids; K44.9 Diaphragmatic hernia without obstruction or gangrene; K21.00 Gastro-esophageal reflux disease with esophagitis, without bleeding; K29.50 Unspecified chronic gastritis without bleeding; M19.90 Unspecified osteoarthritis, unspecified site; Z80.1 Family history of malignant neoplasm of trachea, bronchus and lung; Z79.899 Other long term (current) drug therapy; Z88.2 Allergy status to sulfonamides; Z88.3 Allergy status to other anti-infective agents
CPT/HCPCS: 88305; 45385; 43239; J2704; J2001

== ENCOUNTER → 2021-08-31 | Outpatient (CLI) | payer BC, OTHER ==
[2021-08-31 11:54] VITALS: BMI 34.9
== END | disposition home or self-care (01) ==
LOC: BARWHC3 08:35
PROVIDERS: ATTEND Surgery Plastic and Reconstructive Surgery
DX: E66.01 Morbid (severe) obesity due to excess calories (principal); Z71.3 Dietary counseling and surveillance
CPT/HCPCS: 97804

== ENCOUNTER → 2021-09-23 | Outpatient (CLI) | payer BC, OTHER ==
[2021-09-23 16:02] VITALS: BP 141/83; PULSE 82; TEMP 98.6
--- NOTE | 2021-09-23 17:03 | P.BASOAP ---
Subjective Progress Note Date: 09/23/21 She comes in with weight is well. Colonoscopy reviewed. EKG needs cardiac clearance. Labs - beef liver for low copper. Copper supplement. 2 supplement. Consent for sleeve gastrectomy. Adjust all records to reflect BMI over 35. Consent signed. Ht 5'3.75 Objective - Vital Signs Vital signs: Vital Signs Temp 98.6 F 09/23/21 15:58 Pulse 82 09/23/21 15:58 Resp BP 141/83 09/23/21 15:58 Pulse Ox FiO2 Intake & Output 09/22/21 09/23/21 09/23/21 18:59 06:59 18:59 Weight 97.069 kg Assessment/Plan Plan: Date: 09/23/21 Initial Weight: Initial BMI: Current Weight: 97.069 kg Current BMI: 39.1 Type of Surgery: Total Volume in Band: Previous Volume: Volume Removed: Volume Added: Band Size:
[2021-09-23 17:15] VITALS: BMI 37.0
== END | disposition home or self-care (01) ==
LOC: BARWHC3 15:24
PROVIDERS: ATTEND Surgery Plastic and Reconstructive Surgery
DX: E66.01 Morbid (severe) obesity due to excess calories (principal); Z68.39 Body mass index [BMI] 39.0-39.9, adult
CPT/HCPCS: 99211

== ENCOUNTER → 2021-09-24 | Outpatient (CLI) | payer BC, OTHER | END | disposition home or self-care (01) | LOC: LABPAT 15:08 | PROVIDERS: ATTEND Surgery Plastic and Reconstructive Surgery | DX: Z01.812 Encounter for preprocedural laboratory examination (principal) | CPT/HCPCS: 93005 ==

== ENCOUNTER → 2021-10-27 | Outpatient (CLI) | payer BC, OTHER ==
--- NOTE | 2021-10-27 15:13 | P.SLEEP ---
History of Present Illness H&P Date: 10/27/21 This is a 45-year-old female patient, who is coming in to be checked for obstructive sleep apnea. The patient works for the [employer] and [place] and the patient has been taking breaks at noontime where after lunch she feels very sleepy and she takes a nap in her office. This is affecting her functionality and for that reason she is considering another evaluation for sleep apnea. The first evaluation was done through a sleep center in [facility] and the patient has undergone a previous home sleep study that showed no evidence of any sleep apnea. Nevertheless, over the past 5 years, the patient has gained significant amount of weight and she is up to around 40 pounds. She attributes this to a back injury and back surgery which affected her mobility. For now, she is going to bed at around 10 PM and she is waking up 6:30 AM in the morning and she is averaging about 8 hours of sleep. She is waking up tired and not refreshed. She has been the mother of 6 children, 5 brothers and one boy and she has 5 kids at home still. The youngest child is around 13 years old. The patient is quite busy at work. She is also very busy in her home environment. No sleep paralysis. No hallucinations. No cataplexy. No personal or family history of obstructive sleep apnea or narcolepsy. She sleeps on her stomach and she is also interested in undergoing bariatric surgery. No other major comorbidities for which is a nose breather. No alcoholism. No excessive alcohol ingestion. No caffeine intake. Denies waking up choking or gasping for air. No restlessness lower extremities. No nighttime seizures with shortness of breath or chest pain or any other complaints for now. No psychiatric disorder. She has some limited anxiety. No dysuria of depression. No PTSD. No head trauma. No nighttime terrors or agitation. No sleepwalking. No sleep talking. No grinding of the teeth. No restlessness in lower extremities. Review of Systems Constitutional: Reports daytime sleepiness, Reports fatigue, Reports weight gain Eyes: denies as per HPI, denies blurred vision, denies bulging eye, denies decreased vision, denies diplopia, denies discharge, denies dry eye, denies irritation, denies itching, denies pain, denies photophobia, denies loss of peripheral vision, denies loss of vision, denies tunnel vision/blind spots Ears: deny: decreased hearing, ear discharge, earache, tinnitus Ears, nose, mouth and throat: Reports as per HPI Breasts: absent: as per HPI, change in shape, gynecomastia, masses, nipple discharge, pain, skin changes, swelling Cardiovascular: Reports as per HPI Respiratory: Reports snoring Gastrointestinal: Reports as per HPI Genitourinary: Reports as per HPI Menstruation: Reports as per HPI Musculoskeletal: Reports low back pain Musculoskeletal: absent: ankle pain, ankle stiffness, ankle swelling Integumentary: Reports as per HPI Neurological: Reports as per HPI Psychiatric: Reports as per HPI Endocrine: Reports as per HPI, Reports fatigue Hematologic/Lymphatic: Reports as per HPI Allergic/Immunologic: Reports as per HPI Past Medical History Past Medical History: GERD/Reflux, Osteoarthritis (OA) History of Any Multi-Drug Resistant Organisms: None Reported Past Surgical History: Back Surgery, Section, Hysterectomy, Orthopedic Surgery Additional Past Surgical History / Comment(s): nasal surgery, right shoulder rotator cuff surgery, C/S x 2, left thumb surgery Past Anesthesia/Blood Transfusion Reactions: No Reported Reaction Past Psychological History: Anxiety, Depression Smoking Status: Never smoker Past Alcohol Use History: Occasional Past Drug Use History: None Reported - Past Family History Father Family Medical History: Cancer Additional Family Medical History / Comment(s): lung cancer Medications and Allergies Home Medications Medication Instructions Recorded Confirmed Type ALPRAZolam [Xanax] 0.25 - 0.5 mg PO DAILY PRN 07/04/17 09/23/21 History Loratadine-Pseudoeph 10-240 mg 1 tab PO DAILY PRN 07/04/17 09/23/21 History [Claritin-D 24 Hour] Escitalopram [Lexapro] 10 mg PO DAILY 07/01/21 09/23/21 History Biotin(Dose Unknown) 1 tab PO DAILY 08/18/21 09/23/21 History Vitamin C(Dose Unknown) 1 tab PO DAILY 08/18/21 09/23/21 History Vitamin D(Dose Unknown) 1 tab PO DAILY 08/18/21 09/23/21 History Zinc(Dose Unknown) 1 tab PO DAILY 08/18/21 09/23/21 History Allergies Allergy/AdvReac Type Severity Reaction Status Date / Time sulfamethoxazole Allergy Rash/Hives Verified 08/18/21 15:46 [From Bactrim] trimethoprim [From Bactrim] Allergy Rash/Hives Verified 08/18/21 15:46 Physical Exam BP is 145/88, pulse is 82, respirations 16, temperature is 97.1, saturation 97% on room air, height is 5 feet 4 inches and weight is 218 pounds and a body mass index is 36.6 and the [place] scores a 13. The patient has a neck size of 15 inches. The patient appeared well nourished and normally developed. Vital signs as documented. Head exam is unremarkable. No scleral icterus or corneal arcus n oted. Neck is without jugular venous distension, thyromegaly, or carotid bruits. Carotid upstrokes are brisk bilaterally. Lungs are clear to auscultation and percussion. Cardiac exam reveals the PMI to be normally sized and situated. Rhythm is regular. First and second heart sounds normal. No murmurs, rubs or gallops. Abdominal exam reveals normal bowel sounds, no masses, no organomegaly and no aortic enlargement. Extremities are nonedematous and both femoral and pedal pulses are normal.Examination of the skin revealed no evidence of significant rashes, suspicious appearing nevi or other concerning lesions.Neurologically, the patient is awake and alert and the patient does not have any focal neurological deficit. Cranial nerves are essentially intact. Assessment and Plan Plan: Chronic hypersomnia currently under investigation. Previous home sleep study done through an outside sleep center in 2016 was negative for sleep apnea. Nevertheless, the patient has gained in excess of 40 pounds over the past 5 years and she is coming in for evaluation. Obesity with a body mass index of 36.6, considering bariatric surgery Chronic back pain with previous back surgery Chronic anxiety maintained on Xanax on as needed basis Plan We'll proceed with another home sleep study to even with this patient for any underlying existing sleep breathing disorder Weight loss Maintain adequate sleep hygiene measures Maintain a regular sleep schedule We'll continue to follow make further recommendations based on the results of the home sleep study. May consider a formal polysomnogram and the second day MSLT if the home sleep study is negative and doesn't explain the patient's symptoms of chronic sleepiness. Sleep Note - Sleep Note Sleep Note: Temperature: Pulse Rate: Respiratory Rate: Blood Pressure: SpO2: Height: Weight: BMI: Neck Circumference:
== END | disposition home or self-care (01) ==
LOC: SLEEP 14:41
PROVIDERS: ATTEND Internal Medicine Critical Care Medicine
DX: G47.10 Hypersomnia, unspecified (principal)
CPT/HCPCS: 99211

== ENCOUNTER → 2021-11-09 | Outpatient (CLI) | payer BC, OTHER ==
[2021-11-09 14:59] LABS: African American GFR (CKD) 111.1 (60.0-200.0); Albumin 4.2 g/dL (3.8-4.9); Albumin/Globulin Ratio 1.59 (1.60-3.17); Anion Gap 12.1 mmol/L (10.00-18.00); BUN/Creat Ratio 13.58 Ratio (12.00-20.00); Blood Urea Nitrogen 10.1 mg/dL (9.0-27.0); Calcium 9.4 mg/dL (8.7-10.3); Carbon Dioxide 22.8 mmol/L (20.0-27.5); Globulin 2.6 g/dL (1.6-3.3); Non-African American GFR(CKD) 95.9 (60.0-200.0); Potassium 3.8 mmol/L (3.5-5.5); Total Bilirubin 0.3 mg/dL (0.30-1.20); Total Protein 6.8 g/dL (6.2-8.2)
[2021-11-09 15:23] LABS: Basophils # (A) 0.03 X 10*3/uL (0.00-0.10); Basophils % (A) 0.5 %; Eosinophils % (A) 1.8 %; HCT 40.7 % (37.2-46.3); HGB 13.2 g/dL (12.0-15.0); Immature Grans, Automated 0.5 %; Lymphocytes # (A) 1.57 X 10*3/uL (0.90-5.00); MCH 30.7 pg (27.0-32.0); MCHC 32.4 g/dL (32.0-37.0); MCV 94.7 fL (80.0-97.0); Mean Platelet Volume 10.2 fL (9.5-12.2); Monocytes # (A) 0.39 X 10*3/uL (0.20-1.00); NRBC Per 100 WBC 0 /100 WBCS (0.0-0.0); Neutrophils # (A) 3.48 X 10*3/uL (1.80-7.70); Neutrophils % (A) 62.2 %; Platelet Count 306 X 10*3/uL (140-440); RDW 12.6 % (11.5-14.5)
== END | disposition home or self-care (01) ==
LOC: LABPAT 08:11
PROVIDERS: ATTEND Surgery Plastic and Reconstructive Surgery
DX: Z01.812 Encounter for preprocedural laboratory examination (principal)
CPT/HCPCS: 36415; 80053; 85025

== ENCOUNTER 2021-11-16 12:53 | Inpatient (IN) | payer BC, OTHER ==
--- NOTE | 2021-11-16 09:50 | P.GSHP ---
History of Present Illness H&P Date: 11/16/21 CHIEF COMPLAINT: Morbid obesity HISTORY OF PRESENT ILLNESS: Dulce Victoria is a 45-year-old female who comes with lifelong morbid obesity. She is looking into the sleeve gastrectomy. As a result of our obesity, she has osteoarthritis of the hips, feet, neuropathy including back. She completed medical supervised weight loss. At height of 5 feet 3.75 inches, her ideal body weight is 140 pounds. Her highest weight is 287 pounds, body mass index 36.7. She comes in 212 pounds. Her body mass index is 36.7. She is 72 pounds overweight. PAST MEDICAL HISTORY: 1. Morbid obesity due to excess calories, BMI 36.7, initial 2. Gastroesophageal reflux disease 3. Osteoarthritis hip, left 4. Osteoarthritis feet, left 5. Neuropathy 6. Chronic fatigue PAST SURGICAL HISTORY: 1. Back surgery 2. Hysterectomy 3. Shoulder surgery, right 4. Nasal surgery 5. section HOME MEDICATIONS: Home Medications Medication Instructions Recorded Confirmed ALPRAZolam [Xanax] 0.25 - 0.5 mg PO DAILY PRN 07/04/17 09/23/21 Loratadine-Pseudoeph 10-240 mg 1 tab PO DAILY PRN 07/04/17 09/23/21 [Claritin-D 24 Hour] Escitalopram [Lexapro] 10 mg PO DAILY 07/01/21 09/23/21 Biotin(Dose Unknown) 1 tab PO DAILY 08/18/21 09/23/21 Vitamin C(Dose Unknown) 1 tab PO DAILY 08/18/21 09/23/21 Vitamin D(Dose Unknown) 1 tab PO DAILY 08/18/21 09/23/21 Zinc(Dose Unknown) 1 tab PO DAILY 08/18/21 09/23/21 ALLERGIES: Allergies Allergy/AdvReac Type Severity Reaction Status Date / Time sulfamethoxazole Allergy Rash/Hives Verified 08/18/21 15:46 [From Bactrim] trimethoprim [From Bactrim] Allergy Rash/Hives Verified 08/18/21 15:46 SOCIAL HISTORY: Denies tobacco use. FAMILY HISTORY: No family history of ulcerative colitis disease or Crohn's disease. Family history of morbid obesity. No lupus in the family. No reports of stomach or esophageal cancer. REVIEW OF ORGAN SYSTEMS: CONSTITUTIONAL: At height of 5 feet 3.75 inches, her ideal body weight is 140 pounds. Her highest weight is 287 pounds, body mass index 36.7. She comes in 212 pounds. Her body mass index is 36.7. She is 72 pounds overweight. HEENT: Denies any active troubles with vision or hearing. ENDOCRINE: Denies diabetes. Denies hypothyroidism. CARDIOVASCULAR: Denies past reports of palpitations or heart attacks or chest pain. RESPIRATORY: Has daytime somnolence and snores. GASTROINTESTINAL: Denies any bright red blood per rectum. No diarrhea. No constipation. Has gastroesophageal reflux disease. GENITOURINARY: Denies bladder urgency. No recent blood in urine MUSCULOSKELETAL: Has lower back pain and joint pain. NEURO: Denies migraines. No seizure disorders. PSYCH: Has depression. No suicidal ideation. Has anxiety. RHEUMATOLOGIC: No lupus. No rheumatoid arthritis. HEMATOLOGIC: Denies any abnormal bleeding or bruising. Denies past history of DVTs. SKIN: No rash. No skin cancer. PHYSICAL EXAM: VITAL SIGNS: Height 5 foot 3.75 inches, weight 212 pounds. BMI 36.7 GENERAL: Well-developed in no acute distress. HEENT: No scleral icterus. Extraocular movements grossly intact. Hears conversational speech. No nasal drainage. NECK: Supple without lymphadenopathy. CHEST: Nonlabored respirations with equal bilateral excursions. CARDIOVASCULAR: Regular rate and regular rhythm. Distal 2+ pulses. ABDOMEN: Obese, soft, nontender, nondistended. MUSCULOSKELETAL: No clubbing, cyanosis. NEURO: No focal or lateralizing signs. Cranial nerves 2 through 12 grossly within normal limits. PSYCH: Appropriate affect. Alert and oriented to person, place and time. SKIN: Good skin turgor. Well perfused. ASSESSMENT: 1. Morbid obesity due to excess calories, BMI 36.7, initial 2. Gastroesophageal reflux disease 3. Osteoarthritis hip, left 4. Osteoarthritis feet, left 5. Neuropathy 6. Chronic fatigue PLAN: 1. Bariatric options between a sleeve, band and a Hermann-en-Y gastric bypass were reviewed in detail. The patient elected for a sleeve gastrectomy. Robotic assisted approach described. 2. The [place] [facility] Data was also reviewed with benefits and risks as described. 3. An 8 page second-generation bariatric consent form was reviewed in detail including potential of bleeding, infection, leaks, adequate weight loss, nutritional deficiencies which the patient demonstrated understanding of the risks. 4. A 2 week high-protein low caloric 800 kcal diet described to address hepatomegaly. 5. Preoperative labs including complete metabolic panel and CBC with type and screen recommended. 6. DVT prophylaxis per [place] [facility]. 7. Antibiotic prophylaxis. 8. Inpatient hospitalization anticipated for more than 2 nights. 9. All questions and concerns were addressed with the patient. 10. The patient is at elevated risk for perioperative complications with sleep apnea and hypertensive heart disease. 11. Overall, patient has expressed understanding of bariatric care including postoperative diet and commitment of lifestyle. Patient should benefit from surgical intervention for correction of morbid obesity. Past Medical History Past Medical History: GERD/Reflux, Osteoarthritis (OA) History of Any Multi-Drug Resistant Organisms: None Reported Past Surgical History: Back Surgery, Section, Hysterectomy, Orthopedic Surgery Additional Past Surgical History / Comment(s): nasal surgery, right shoulder rotator cuff surgery, C/S x 2, left thumb surgery Past Anesthesia/Blood Transfusion Reactions: No Reported Reaction Past Psychological History: Anxiety, Depression Smoking Status: Never smoker Past Alcohol Use History: Occasional Past Drug Use History: None Reported - Past Family History Father Family Medical History: Cancer Additional Family Medical History / Comment(s): lung cancer Medications and Allergies Home Medications Medication Instructions Recorded Confirmed Type ALPRAZolam [Xanax] 0.25 - 0.5 mg PO DAILY PRN 07/04/17 11/11/21 History Escitalopram [Lexapro] 10 mg PO DAILY 07/01/21 11/11/21 History Allergies Allergy/AdvReac Type Severity Reaction Status Date / Time sulfamethoxazole Allergy Rash/Hives Verified 11/11/21 09:29 [From Bactrim] trimethoprim [From Bactrim] Allergy Rash/Hives Verified 11/11/21 09:29
[~2021-11-16 12:53] MED LIST changes: +CHLORHEXIDINE GLUCONATE 15 ML CUP MUCOUS MEM PRN; +DEXAMETHASONE SOD PHOSPHATE 4 MG/ML 1 ML VIAL IV ONE; +ENOXAPARIN 40 MG/0.4 ML SYRINGE SQ PRN; +HYDROmorphone 0.5 MG/0.5 ML SYRINGE IVP PRN; -LACTATED RINGERS 1,000 ML IV SCH; +LIDOCAINE 1% (10MG/ML) FOR IV START INTRADERMA PRN; +ONDANSETRON 4 MG/2 ML VIAL IVP ONE; +PANTOPRAZOLE 40 MG/10 ML VIAL IVP PRN; +SCOPOLAMINE 1 MG/72 HR PATCH TRANSDERM ONE
[2021-11-16] MEDS: LACTATED RINGERS 1,000 ML IV SCH (13:25)
[2021-11-16] MEDS ORDERED: SUCCINYLCHOLINE CHLORIDE 200 MG/10 ML VIAL IV ONE (14:44)
[2021-11-16] MEDS ORDERED: NEOSTIGMINE 1 MG/ML 10 ML VIAL ONE (14:44)
[2021-11-16] MEDS ORDERED: HYDROmorphone (PF) 1 MG/ML ONE (14:44)
[2021-11-16] MEDS ORDERED: ROCURONIUM 10 MG/ML (5 ML VIAL) IV ONE (14:44)
[2021-11-16] MEDS ORDERED: fentaNYL (PF) 50 MCG/ML 2 ML AMP ONE (14:44)
[2021-11-16] MEDS ORDERED: LIDOCAINE 2% INJ 20 MG/ML (2 ML VIAL) ONE (14:44)
[2021-11-16] MEDS ORDERED: MIDAZOLAM 2 MG/2 ML VIAL ONE (14:44)
[2021-11-16] MEDS ORDERED: GLYCOPYRROLATE 0.2 MG/ML 2 ML VIAL ONE (14:44)
[2021-11-16] MEDS ORDERED: PROPOFOL 10 MG/ML 20 ML VIAL IV ONE (14:44)
[2021-11-16] MEDS ORDERED: PHENYLEPHRINE-0.9% NACL SYG 1,000 MCG/10 ML SYRINGE ONE (14:44)
[2021-11-16] MEDS ORDERED: BUPIVACAINE (PF) 0.25% 30 ML VIAL SQ ONE (15:25)
[2021-11-16] MEDS ORDERED: LACTATED RINGERS 1,000 ML IV ONE (16:11)
[2021-11-16] MEDS ORDERED: HYDROmorphone 0.5 MG/0.5 ML SYRINGE IVP ONE ×2 (16:46→17:24)
[2021-11-16] MEDS ORDERED: NALOXONE 0.4 MG/ML 1 ML VIAL IV PRN ×2 (16:59→17:02)
[2021-11-16] MEDS ORDERED: fentaNYL PCA 500 MCG/50 ML BAG IV PRN (17:02)
[2021-11-16] MEDS ORDERED: SODIUM CHLORIDE 0.9% 1,000 ML IV ONE (17:02)
[2021-11-16] MEDS ORDERED: LORazepam 2 MG/ML INJ IV PRN (17:04)
--- NOTE | 2021-11-16 17:12 | P.OP ---
Date of Procedure: 11/16/21 Description of Procedure: SURGEON: DOUGLAS VITAL MD PREOPERATIVE DIAGNOSES: 1. Morbid obesity due to excess calories, BMI 36.7, initial 2. Gastroesophageal reflux disease 3. Osteoarthritis hip, left 4. Osteoarthritis feet, left 5. Neuropathy 6. Chronic fatigue POSTOPERATIVE DIAGNOSES: 1. Morbid obesity due to excess calories, BMI 36.7, initial 2. Gastroesophageal reflux disease 3. Osteoarthritis hip, left 4. Osteoarthritis feet, left 5. Neuropathy 6. Chronic fatigue OPERATION: 1. Robotic assisted daVinci Xi laparoscopic sleeve gastrectomy with 40-Mauritian bougie, multiport. 2. Intraoperative esophagogastroduodenoscopy. ANESTHESIA: Gen. local anesthetic ESTIMATED BLOOD LOSS: 5 mL SPECIMENS REMOVED: Sleeve gastrectomy COMPLICATIONS: None. FINDINGS: 1. Negative intraoperative esophagogastrojejunoscopy leak test. 2. No hepatomegaly and no large hiatus hernia. 3. Total of 5 staplers used including 1 - 60 mm green robot arely and 4 - 60 mm blue robot loads used to create the gastric sleeve. 4. Sleeve gastrectomy, 24 x 4 cm INDICATIONS: Dulce Victoria is a 45-year-old female who comes with lifelong morbid obesity. She is looking into the sleeve gastrectomy. As a result of our obesity, she has osteoarthritis of the hips, feet, neuropathy including back. She completed medical supervised weight loss. At height of 5 feet 3.75 inches, her ideal body weight is 140 pounds. Her highest weight is 287 pounds, body mass index 36.7. She comes in 212 pounds. Her body mass index is 36.7. She is 72 pounds overweight. All surgical options for morbid obesity had been described using the [place] bariatric surgery collaborative comorbidity resolution including complication risk score. A second-generation bariatric consent form was described in detail including the possibility of protein malnutrition, leaks, gastric stricture, venous thrombosis, gastroesophageal reflux disease, need for further surgery for which she demonstrated understanding. Benefits and risks of the procedure were described at length. Informed consent was obtained. DESCRIPTION: The patient was brought into the operating room theater. Preoperatively she had received Lovenox subcutaneously for DVT prophylaxis. Additionally she had Peridex oral solution as an oral decontaminant. After general induction, the abdomen was prepped and draped in standard sterile fashion. An Ioban draping was placed along the abdomen. A robotic da Azeb Xi system was prepped and primed. At 15 cm from the xiphoid, proposed port sites were marked with indelible marker along the anterior axillary line bilaterally, mid axillary line bilaterally with each ports were marked 10 to 15 cm from each other. The robotic stapler port was marked for the right midclavicular line. A 5 mm 0 degrees laparoscopic trocar entry was performed along the left upper quadrant. The abdomen was insufflated to 15 mmHg pressure was tolerated well. Diagnostic laparoscopy demonstrated no injury to bowel, viscera, or mesentery. No evidence of large hiatus hernia was identified. The liver edge was sharp consistent with 2 week low-carb high-protein diet. A 8 mm port was placed along the left upper abdominal wall after exchanging the 5 mm port. A separate 8 mm port was placed along the left lateral abdominal wall. Please note that the ports were placed at least 20 cm away from the target anatomy. Care was taken to check each robotic arms were safely away from collision with the bed or the patient. At the epigastrium, a medium sized Hood liver retractor was placed under direct visualization with the [employer] Services Account Manager placed under the right shoulder of the patient. Next, 12-mm robot stapler port was placed along the right upper quadrant. The camera 8-mm port was maintained along the epigastrium. The patient was repositioned in reverse Trendelenburg position at 21-degrees after lowering the bed. The robot was docked along the left side of the patient. Using a grasper for arm 4, a vessel sealer for arm 3, including grasper for arm 1, the robotic system was docked and primed as described. Instruments were interchanged by the assistant corporate controller for stapler loads. The camera was placed at 30- degrees down. I had sat at the console. The pylorus was identified and 6 cm proximally along the greater curvature of the stomach, the short gastrics were mobilized upwards to the angle of His using a vessel sealer. Hemostasis was excellent during this portion of the procedure. Next, the upper pole of the stomach was adherent to the left rod, which was gently dissected free using atraumatic grasper. I went to the head of the bed and placed 40-Mauritian blunt bougie into the stoma ch. The bougie was readjusted by the nurse nutrition faculty member. Robotic stapler green load 60 mm 1 followed by blue 60 mm x 4 loads were used to create the sleeve. Initial firing was across the antrum of the stomach towards the angle of His. The staple line was linear without corkscrewing. The space from the angularis incisura of the sleeve was approximately 4 cm. I then went to the head of the bed to perform the intraoperative esophagogastroduodenoscopy leak test. The bougie was withdrawn. The upper pole of the stomach was bathed using normal saline solution. The scope was withdrawn with careful inspection along the staple line for which no leaks were found along the entire length. Additionally,the sleeve was completely hemostatic without any encroachment along the angularis incisura. Its topology was a soft "J". No stricture was encountered upon placement of the scope. The GI tract was desufflated. The patient tolerated this portion of the procedure well. The scope was completely withdrawn. The robot was undocked. I then rescrubbed into case, whereby the irrigation fluid was aspirated from the abdominal cavity. Tisseel fibrin sealant was placed along the entire staple length. Once dried the Hood liver retractor was removed. Attention was now brought to removal of the specimen. The distal end of the sleeve gastrectomy specimen was brought out through the 12 mm port at the left upper quadrant. The specimen was gently removed en total. No contamination had occurred during this process. All instruments and pneumoperitoneum including irrigation fluid was removed from the abdominal cavity. The 12 mm port site was closed using 0-Vicryl and Otto Plummer and irrigated with diluted hydrogen peroxide. The final incisions were closed using subcuticular interrupted suture of 4-0 Monocryl. Exofin was applied to the skin once the skin had been cleansed. OptiFoam dressing was placed along the stomach extraction site. The sleeve specimen was measured and checked also for leaks which none were found. At the end of the procedure, needle, sponge, and instrument count was verified correct by the surgical services tech. The patient was taken to the postanesthesia care unit in stable condition. She had tolerated the procedure well. Intraoperative films and findings were reviewed with the patient's family.
[2021-11-16] MEDS: ALBUTEROL NEBULIZED 2.5 MG/3 ML INHALATION SCH (19:24)
[2021-11-16] MEDS ORDERED: DEXAMETHASONE SOD PHOSPHATE 10 MG/ML 1 ML VIAL IVP ONE (20:00)
[2021-11-16] MEDS: 0.9% NACL WITH KCL 20 MEQ/L 1,000 ML IV SCH (20:53)
[2021-11-16] MEDS: METOCLOPRAMIDE 5 MG/ML 2 ML VIAL IVP SCH (20:54)
[2021-11-16] MEDS: PANTOPRAZOLE 40 MG/10 ML VIAL IV SCH (20:54)
[2021-11-16] MEDS: DEXAMETHASONE SOD PHOSPHATE 4 MG/ML 1 ML VIAL IVP SCH (20:55)
[2021-11-16] MEDS: ONDANSETRON 4 MG/2 ML VIAL IVP SCH (20:55)
[2021-11-16] MEDS: HYOSCYAMINE ORAL DROPS 1.875 MG/15 ML BOTTLE PO SCH (21:10)
[2021-11-16] MEDS: SIMETHICONE 40 MG/0.6 ML DROPS 2,000 MG/30 ML BOTTLE PO SCH (21:11)
[2021-11-16] MEDS: ACETAMINOPHEN IV (For NPO) 1,000 MG in EMPTY BAG 1 BAG IVPB SCH (21:11)
[2021-11-17] MEDS: METOCLOPRAMIDE 5 MG/ML 2 ML VIAL IVP SCH ×3 (01:28→12:19)
[2021-11-17] MEDS: ACETAMINOPHEN IV (For NPO) 1,000 MG in EMPTY BAG 1 BAG IVPB SCH ×3 (01:58→12:20)
[2021-11-17] MEDS: ONDANSETRON 4 MG/2 ML VIAL IVP SCH ×3 (02:01→12:20)
[2021-11-17] MEDS: DEXAMETHASONE SOD PHOSPHATE 4 MG/ML 1 ML VIAL IVP SCH ×3 (02:02→12:19)
[2021-11-17] MEDS: SIMETHICONE 40 MG/0.6 ML DROPS 2,000 MG/30 ML BOTTLE PO SCH ×3 (02:02→12:21)
[2021-11-17] MEDS: HYOSCYAMINE ORAL DROPS 1.875 MG/15 ML BOTTLE PO SCH ×3 (02:09→12:21)
[2021-11-17] MEDS: 0.9% NACL WITH KCL 20 MEQ/L 1,000 ML IV SCH ×2 (03:36→05:34)
[2021-11-17] MEDS ORDERED: 0.9% NACL WITH KCL 20 MEQ/L 1,000 ML IV SCH (08:00)
[2021-11-17] MEDS: LACTATED RINGERS 1,000 ML IV SCH (08:16)
--- NOTE | 2021-11-17 08:42 | FL ---
EXAMINATION TYPE: FL UGI DATE OF EXAM: 11/17/2021 LIMITED UGI: CLINICAL HISTORY: Obesity, gastric sleeve surgery yesterday. TECHNIQUE: Limited esophagram is performed utilizing 30 oz of Isovue-300. A total of 24 seconds of f luoroscopic time was utilized during procedure and 19 images obtained. COMPARISON: Prior esophagram December 25, 2015. FINDINGS: The patient swallowed contrast without difficulty or delay. Esophageal peristalsis and mo tility are within normal limits. There is good flow of contrast along the diaphragmatic hiatus into proximal stomach and subsequent flow through proximal anastomosis into gastric sleeve. There is good flow from distal sleeve and anastomosis into pylorus and duodenal sweep. Patient remains asymptomatic . There is no evidence of contrast extravasation to suggest leak. IMPRESSION: No evidence of leak or significant obstruction status post recent gastric sleeve surgery.
[2021-11-17] MEDS: ALBUTEROL NEBULIZED 2.5 MG/3 ML INHALATION SCH ×2 (08:56→12:13)
[2021-11-17] MEDS ORDERED: ENOXAPARIN 40 MG/0.4 ML SYRINGE SQ SCH (09:00)
[2021-11-17] MEDS ORDERED: ESCITALOPRAM 10 MG TAB PO SCH (09:00)
[2021-11-17] MEDS: PANTOPRAZOLE 40 MG/10 ML VIAL IV SCH (09:06)
[2021-11-17 10:40] LABS: Basophils # (A) 0 X 10*3/uL (0.00-0.10); Basophils % (A) 0 %; Eosinophils # (A) 0.01 X 10*3/uL (0.04-0.35); Eosinophils % (A) 0.1 %; HCT 32.6 % (37.2-46.3); HGB 10.9 g/dL (12.0-15.0); Immature Grans, Automated 0.3 %; Lymphocytes # (A) 0.45 X 10*3/uL (0.90-5.00); Lymphocytes % (A) 6.2 %; MCH 30.9 pg (27.0-32.0); MCHC 33.4 g/dL (32.0-37.0); MCV 92.4 fL (80.0-97.0); Mean Platelet Volume 10.2 fL (9.5-12.2); Monocytes # (A) 0.06 X 10*3/uL (0.20-1.00); Monocytes % (A) 0.8 %; NRBC Per 100 WBC 0 /100 WBCS (0.0-0.0); Neutrophils # (A) 6.68 X 10*3/uL (1.80-7.70); Neutrophils % (A) 92.6 %; Platelet Count 307 X 10*3/uL (140-440); RBC 3.53 X 10*6/uL (4.10-5.20); RDW 12.4 % (11.5-14.5); WBC 7.22 X 10*3/uL (4.50-10.00)
[2021-11-17 11:15] LABS: African American GFR (CKD) 125.8 (60.0-200.0); Anion Gap 13.7 mmol/L (10.00-18.00); Blood Urea Nitrogen 9.8 mg/dL (9.0-27.0); Calcium 8.3 mg/dL (8.7-10.3); Carbon Dioxide 17.3 mmol/L (20.0-27.5); Non-African American GFR(CKD) 108.5 (60.0-200.0); Phosphorus 2.7 mg/dL (2.4-5.1); Potassium 4.4 mmol/L (3.5-5.5)
[2021-11-17 11:33] VITALS: BMI 36.3
[2021-11-17] MEDS ORDERED: KETOROLAC 15 MG/ML 1 ML VIAL IVP SCH (12:30)
[2021-11-17 15:46] VITALS: BP 122/69; PULSE 74; RESP 16; TEMP 98.1
--- NOTE | 2021-11-17 16:26 | P.DS ---
Providers Date of admission: 11/16/21 16:59 Expected date of discharge: 11/17/21 Attending physician: Savanna Jones Primary care physician: Angel [facility] Course: POSTOPERATIVE DIAGNOSES: 1. Morbid obesity due to excess calories, BMI 36.7, initial 2. Gastroesophageal reflux disease 3. Osteoarthritis hip, left 4. Osteoarthritis feet, left 5. Neuropathy 6. Chronic fatigue INDICATIONS: Dulce Victoria is a 45-year-old female who comes with lifelong morbid obesity. She underwent sleeve gastrectomy without complications. Esophagram and reviewed without leak or obstruction. She is tolerating liquids. She was ambulating. Pain was well-controlled. Telephone discussion with the nurse performed prior to discharge. Discharge instructions: Medical reconciliation was performed and reviewed. Follow-up in the bariatric center in 3 days described. All questions were addressed. Patient was stable for discharge. Procedures: OPERATION: 1. Robotic assisted daVinci Xi laparoscopic sleeve gastrectomy with 40-Czech bougie, multiport. 2. Intraoperative esophagogastroduodenoscopy. ANESTHESIA: Gen. local anesthetic ESTIMATED BLOOD LOSS: 5 mL SPECIMENS REMOVED: Sleeve gastrectomy COMPLICATIONS: None. FINDINGS: 1. Negative intraoperative esophagogastrojejunoscopy leak test. 2. No hepatomegaly and no large hiatus hernia. 3. Total of 5 staplers used including 1 - 60 mm green robot arely and 4 - 60 mm blue robot loads used to create the gastric sleeve. 4. Sleeve gastrectomy, 24 x 4 cm Patient Condition at Discharge: Good Plan - Discharge Summary Discharge Rx Participant: Yes New Discharge Prescriptions: New bisacodyL [Dulcolax] 5 mg PO DAILY PRN #10 tab PRN Reason: Constipation Acetaminophen Tab [Tylenol Tab] 1,000 mg PO Q6HR PRN #30 tablet PRN Reason: Pain Simethicone 40 mg/0.6 ml Drops [Mylicon Drops] 40 mg PO PCHS PRN #30 ml PRN Reason: Gas Omeprazole [PriLOSEC] 40 mg PO DAILY #30 cap Ondansetron Odt [Zofran Odt] 4 mg PO Q8HR PRN #9 tab PRN Reason: Nausea Continue ALPRAZolam [Xanax] 0.25 - 0.5 mg PO DAILY PRN PRN Reason: Anxiety Escitalopram [Lexapro] 10 mg PO DAILY Discharge Medication List ALPRAZolam [Xanax] 0.25 - 0.5 mg PO DAILY PRN 07/04/17 [History] Escitalopram [Lexapro] 10 mg PO DAILY 07/01/21 [History] Acetaminophen Tab [Tylenol Tab] 1,000 mg PO Q6HR PRN #30 tablet 11/17/21 [Rx] Omeprazole [PriLOSEC] 40 mg PO DAILY #30 cap 11/17/21 [Rx] Ondansetron Odt [Zofran Odt] 4 mg PO Q8HR PRN #9 tab 11/17/21 [Rx] Simethicone 40 mg/0.6 ml Drops [Mylicon Drops] 40 mg PO PCHS PRN #30 ml 11/17/21 [Rx] bisacodyL [Dulcolax] 5 mg PO DAILY PRN #10 tab 11/17/21 [Rx] Follow up Appointment(s)/Referral(s): [place], [place] [NON-STAFF] - 11/20/21 9:00 am Patient Instructions/Handouts: *Surgery [facility] - Managing Your Pain After Surgery Without Opioids, Nutrition after Bariatric Surgery (GEN), Laparoscopic Sleeve Gastrectomy (DC), Deep Vein Thrombosis Prevention (DC) Activity/Diet/Wound Care/Special Instructions: Liquid diet only for 2 weeks until Nov 30 No lifting over 4 pounds in 4 weeks, Dec 17June Shower. No soaking in bath tubs, 2 weeks until Nov 30 Please notify your surgeon if you develop nausea and vomiting including new onset of abdominal pain. Continue to use incentive spirometry to prevent pneumonias. Please continue to ambulate at home to prevent blood clots in legs. Follow-up at the bariatric center. May shower. Dressings to be discontinued by surgeon in the office. Drink 64 oz of fluid daily. Start protein shakes on . Notify bariatric center for temp over 101.0, increased pain, drainage from incisions. No straws or carbonated beverages. Liquid diet only. Sugar content should be less than 6 g to avoid dumping syndrome. Take MOM for constipation. CRUSH, OPEN, OR CUT TABLETS LARGER THAN A SIZE OF A TIC TAC Discharge Disposition: HOME SELF-CARE
[2021-11-17] MEDS ORDERED: ACETAMINOPHEN IV (For NPO) 1,000 MG in EMPTY BAG 1 BAG IVPB SCH (18:00)
== END 2021-11-17 18:00 | disposition home or self-care (01) | DRG 621 ==
LOC: OR 12:53 → 4SSUR 16:58 → OR 16:59
PROVIDERS: ADMIT Surgery Plastic and Reconstructive Surgery; ATTEND Surgery Plastic and Reconstructive Surgery
PROC: 0DJ08ZZ Inspection of Upper Intestinal Tract, Via Natural or Artificial Opening Endoscopic (ICD-10-PCS; 2021-11-16)
PROC: 0DB64Z3 Excision of Stomach, Percutaneous Endoscopic Approach, Vertical (ICD-10-PCS; principal; 2021-11-16 14:05)
PROC: 8E0W4CZ Robotic Assisted Procedure of Trunk Region, Percutaneous Endoscopic Approach (ICD-10-PCS; 2021-11-16 14:05)
DX: E66.01 Morbid (severe) obesity due to excess calories (principal); F32.A Depression, unspecified; F41.9 Anxiety disorder, unspecified; G62.9 Polyneuropathy, unspecified; K21.9 Gastro-esophageal reflux disease without esophagitis; M16.12 Unilateral primary osteoarthritis, left hip; M16.0 Bilateral primary osteoarthritis of hip; R53.82 Chronic fatigue, unspecified; Z68.36 Body mass index [BMI] 36.0-36.9, adult; Z79.899 Other long term (current) drug therapy; Z90.710 Acquired absence of both cervix and uterus; Z88.2 Allergy status to sulfonamides; Z88.1 Allergy status to other antibiotic agents
CPT/HCPCS: 43235; 74240; 80051; 82310; 82565; 83735; 84100; 84520; 85025; 86850; 86900; 86901; 88307

== ENCOUNTER → 2021-12-23 | Outpatient (CLI) | payer BC, OTHER ==
[2021-12-23 15:35] VITALS: BP 124/85; PULSE 73; TEMP 98.6; BMI 32.3
--- NOTE | 2021-12-23 15:57 | P.BASOAP ---
Subjective Progress Note Date: 12/23/21 She reports pain along the right upper quadrant to her back. She still has her gallbladder. She report trouble urinating. Will US of kidneys and bladder, right upper quadrant US, urinalysis. Recommend labs at 1 month visit for today. Objective - Vital Signs Vital signs: Vital Signs Temp 98.6 F 12/23/21 15:29 Pulse 73 12/23/21 15:29 Resp BP 124/85 12/23/21 15:29 Pulse Ox FiO2 Intake & Output 12/22/21 12/23/21 12/23/21 18:59 06:59 18:59 Weight 84.822 kg Assessment/Plan Plan: Date: 12/23/21 Initial Weight: Initial BMI: Current Weight: 84.822 kg Current BMI: 32.3 Type of Surgery: Total Volume in Band: Previous Volume: Volume Removed: Volume Added: Band Size:
[2021-12-23 18:02] LABS: Partial Thromboplastin Time 23.6 sec (22.0-30.0)
[2021-12-23 23:47] LABS: HCT 38.3 % (37.2-46.3); HGB 12.1 g/dL (12.0-15.0); MCH 29.1 pg (27.0-32.0); MCHC 31.6 g/dL (32.0-37.0); MCV 92.1 fL (80.0-97.0); Mean Platelet Volume 11.4 fL (9.5-12.2); NRBC Per 100 WBC 0 /100 WBCS (0.0-0.0); Platelet Count 227 X 10*3/uL (140-440); RBC 4.16 X 10*6/uL (4.10-5.20); RDW 12.9 % (11.5-14.5); WBC 6.16 X 10*3/uL (4.50-10.00)
[2021-12-24 01:37] LABS: % Iron Saturation 12.37 (12.00-45.00); ALT 30 U/L (8-44); AST 24 U/L (13-35); African American GFR (CKD) 83.9 (60.0-200.0); Albumin 4.4 g/dL (3.8-4.9); Albumin/Globulin Ratio 1.92 (1.60-3.17); Alkaline Phosphatase 82 U/L (41-126); BUN/Creat Ratio 15.86 Ratio (12.00-20.00); Blood Urea Nitrogen 14.8 mg/dL (9.0-27.0); Calcium 9.7 mg/dL (8.7-10.3); Carbon Dioxide 23.8 mmol/L (20.0-27.5); Chloride 105 mmol/L (96-109); Globulin 2.3 g/dL (1.6-3.3); Glucose 91 mg/dL (70-110); Iron 37 ug/dL (50-170); Magnesium 2.1 mg/dL (1.5-2.4); Non-African American GFR(CKD) 72.4 (60.0-200.0); Phosphorus 2.9 mg/dL (2.4-5.1); Potassium 4.3 mmol/L (3.5-5.5); Sodium 142 mmol/L (135-145); Total Iron Binding Capacity 302 ug/dL (228-460); Total Protein 6.7 g/dL (6.2-8.2)
[2021-12-24 01:54] LABS: Prealbumin 16.6 mg/dL (18.0-42.0)
[2021-12-24 01:55] LABS: Chol/HDL Ratio 5.36 Ratio; LDL Cholesterol,Calculated 140.1 mg/dL (0.0-131.0)
[2021-12-24 02:44] LABS: Appearance,Urine Cloudy (Clear); Bilirubin,Urine Negative (Negative); Blood,Urine Negative (Negative); Color,Urine Yellow (Yellow); Ketones,Urine 15 mg/dL (Negative); Nitrite,Urine Negative (Negative); PH, Urine 5.5 (5.0-8.0); Urobilinogen,Urine 0.2 (0.2,1.0)
[2021-12-24 02:55] LABS: Bacteria,Urine Trace /HPF (None Seen)
[2021-12-24 13:42] LABS: Zinc, Serum 75 ug/dL (60-130)
[2021-12-25 08:18] LABS: Vitamin A 35 ug/dL (38-106)
[2021-12-25 10:48] LABS: Vit B1(Thiamine) 55 ug/L (38-122)
== END ==
LOC: BARWHC3 14:54
PROVIDERS: ATTEND Surgery Plastic and Reconstructive Surgery
DX: E66.01 Morbid (severe) obesity due to excess calories (principal); D50.9 Iron deficiency anemia, unspecified; K91.2 Postsurgical malabsorption, not elsewhere classified; E44.0 Moderate protein-calorie malnutrition; E45 Retarded development following protein-calorie malnutrition; E55.9 Vitamin D deficiency, unspecified; K74.1 Hepatic sclerosis; N19 Unspecified kidney failure; T56.894A Toxic effect of other metals, undetermined, initial encounter; K50.90 Crohn's disease, unspecified, without complications; N39.0 Urinary tract infection, site not specified; Z68.32 Body mass index [BMI] 32.0-32.9, adult
CPT/HCPCS: 80053; 80061; 81001; 82306; 82525; 82607; 82728; 82746; 83540; 83550; 83735; 83970; 84100; 84134; 84255; 84425; 84443; 84590; 84630; 85027; 85610; 85730; 87086; 97803; 99211

== ENCOUNTER → 2022-01-04 | Outpatient (CLI) | payer BC, OTHER ==
--- NOTE | 2022-01-05 08:23 | MM ---
Reason for Exam: Screening (asymptomatic). Last screening mammogram was performed 12 month(s) ago. Patient History: Menarche at age 10. First Full-Term at age 20. Hysterectomy at age 35. Postmenopausal. Patient has history of breast feeding. Risk Values: Darby 5 year model risk: 0.8%. NCI Lifetime model risk: 8.3%. Prior Study Comparison: 04/20/2013 Bilateral Screening Mammogram, [facility]. 09/18/2015 Bilateral Screening Mammogram, [facility]. 11/16/2016 Bilateral Screening Mammogram, [facility]. 11/23/2017 Bilateral Screening Mammogram, [facility]. 12/07/2017 Left Diagnostic Ultrasound, [facility]. 11/27/2018 Bilateral Screening Mammogram, [facility]. 11/30/2019 Bilateral Screening Mammogram, [facility]. 01/01/2021 Bilateral Screening Mammogram, [facility]. Tissue Density: There are scattered fibroglandular densities. Findings: Analyzed By CAD. There is no suspicious group of microcalcifications or new suspicious mass in either breast. Chronic nodularity left breast is unchanged. No significant change from prior exams. Overall Assessment: Benign, BI-RAD 2 Management: Screening Mammogram of both breasts in 1 year. A clinical breast exam by your physician is recommended on an annual basis and results should be correlated with mammographic findings. Electronically signed and approved by: Ha Tapia D.O.
== END | disposition home or self-care (01) ==
LOC: RADMAMWWP 07:13
PROVIDERS: ATTEND Obstetrics & Gynecology
DX: Z12.31 Encounter for screening mammogram for malignant neoplasm of breast (principal); Z78.0 Asymptomatic menopausal state
CPT/HCPCS: 77063; 77067

== ENCOUNTER → 2022-01-20 | Outpatient (CLI) | payer BC, OTHER ==
--- NOTE | 2022-01-20 10:58 | US ---
EXAMINATION TYPE: US abd limited kidneys/bladder DATE OF EXAM: 01/20/2022 COMPARISON: NONE CLINICAL HISTORY: R10.11, R33.9. RUQ and flank pain, patient just passed a stone which alleviated donovan n now. TECHNIQUE: Multiple sonographic images of the right upper quadrant, bilateral kidneys, and bladder ar e obtained. FINDINGS: EXAM MEASUREMENTS: Liver Length: 15.3 cm Gallbladder Wall: 0.2 cm CBD: 0.3 cm Right Kidney: 10.6 x 5.6 x 5.1 cm Left Kidney: 10.3 x 5.4 x 5.0 cm Pancreas: wnl Liver: wnl Gallbladder: wnl CBD: wnl Right Kidney: wnl Left Kidney: wnl Bladder: wnl Bilateral Jets Seen yes Visualized organs are within normal limits for the sonographic appearance. No evidence of suspicious mass or acute process. IMPRESSION: No evidence for acute abdominal process.
== END | disposition home or self-care (01) ==
LOC: RADUSWWP 10:01
PROVIDERS: ATTEND Surgery Plastic and Reconstructive Surgery
DX: R33.9 Retention of urine, unspecified (principal); R10.11 Right upper quadrant pain
CPT/HCPCS: 76705; 76770

== ENCOUNTER → 2022-03-10 | Outpatient (CLI) | payer BC, OTHER ==
[2022-03-10 14:26] VITALS: BP 129/81; PULSE 68; RESP 16; TEMP 98.3; BMI 29.5
--- NOTE | 2022-03-10 15:00 | P.BASOAP ---
Subjective Progress Note Date: 03/10/22 Patient reports using food journal Easiaid. Protein intake 60 g daily. She had passed extremely large stone. She reports her fluid intake 50-60 ounces daily. Recommend increase fluid intake at least 80 ounces daily including protein intake at least 80 g daily. Recommend bariatric labs. Prior labs were reviewed. All questions addressed. Objective - Vital Signs Vital signs: Vital Signs Temp 98.3 F 03/10/22 14:21 Pulse 68 03/10/22 14:21 Resp 16 03/10/22 14:21 BP 129/81 03/10/22 14:21 Pulse Ox FiO2 Intake & Output 03/09/22 03/10/22 03/10/22 18:59 06:59 18:59 Weight 77.564 kg Assessment/Plan Plan: Date: 03/10/22 Initial Weight: 96.162 kg Initial BMI: 36.6 Current Weight: 77.564 kg Current BMI: 29.5 Type of Surgery: Vertical Sleeve Gastrectomy Total Volume in Band: Previous Volume: Volume Removed: Volume Added: Band Size:
[2022-03-10 15:37] LABS: Partial Thromboplastin Time 24.2 sec (22.0-30.0); Prothrombin Time 10.5 sec (9.0-12.0)
[2022-03-10 19:25] LABS: HCT 40.9 % (37.2-46.3); HGB 13.1 g/dL (12.0-15.0); MCH 28.7 pg (27.0-32.0); MCV 89.7 fL (80.0-97.0); Mean Platelet Volume 10.8 fL (9.5-12.2); NRBC Per 100 WBC 0 /100 WBCS (0.0-0.0); Platelet Count 245 X 10*3/uL (140-440); RBC 4.56 X 10*6/uL (4.10-5.20); RDW 13.4 % (11.5-14.5)
[2022-03-10 23:25] LABS: % Iron Saturation 15.81 (12.00-45.00); ALT 34 U/L (8-44); AST 29 U/L (13-35); African American GFR (CKD) 112.5 (60.0-200.0); Albumin 4.7 g/dL (3.8-4.9); Albumin/Globulin Ratio 2.16 (1.60-3.17); Alkaline Phosphatase 82 U/L (41-126); BUN/Creat Ratio 18.03 Ratio (12.00-20.00); Blood Urea Nitrogen 13.2 mg/dL (9.0-27.0); Calcium 10.4 mg/dL (8.7-10.3); Carbon Dioxide 24.1 mmol/L (20.0-27.5); Chloride 105 mmol/L (96-109); Globulin 2.2 g/dL (1.6-3.3); Glucose 90 mg/dL (70-110); Iron 57 ug/dL (50-170); Magnesium 2.1 mg/dL (1.5-2.4); Non-African American GFR(CKD) 97.1 (60.0-200.0); Phosphorus 3.9 mg/dL (2.4-5.1); Potassium 4.1 mmol/L (3.5-5.5); Sodium 142 mmol/L (135-145); Total Iron Binding Capacity 360 ug/dL (228-460); Total Protein 6.9 g/dL (6.2-8.2)
[2022-03-10 23:27] LABS: Chol/HDL Ratio 4.52 Ratio; LDL Cholesterol,Calculated 154.1 mg/dL (0.0-131.0); Prealbumin 19.7 mg/dL (18.0-42.0)
[2022-03-12 06:05] LABS: Vitamin A 52 ug/dL (38-106)
[2022-03-12 06:37] LABS: Vit B1(Thiamine) 63 ug/L (38-122)
== END ==
LOC: BARWHC3 13:55
PROVIDERS: ATTEND Surgery Plastic and Reconstructive Surgery
DX: Z71.3 Dietary counseling and surveillance (principal); E66.01 Morbid (severe) obesity due to excess calories; Z68.29 Body mass index [BMI] 29.0-29.9, adult; Z88.2 Allergy status to sulfonamides
CPT/HCPCS: 36415; 80053; 80061; 82306; 82525; 82607; 82728; 82746; 83036; 83540; 83550; 83735; 83970; 84100; 84134; 84255; 84425; 84443; 84590; 84630; 85027; 85610; 85730; 97803; 99211

== ENCOUNTER → 2022-06-16 | Outpatient (CLI) | payer BC, OTHER ==
[2022-06-16 14:37] VITALS: BP 121/83; PULSE 76; TEMP 98.1; BMI 28.5
--- NOTE | 2022-06-16 14:55 | P.BASOAP ---
Subjective Progress Note Date: 06/16/22 She is eating 60 g to 80 grams daily. She is happy with her weight/. Get labs. She is doing well. No GERD. Objective - Vital Signs Vital signs: Vital Signs Temp 98.1 F 06/16/22 14:32 Pulse 76 06/16/22 14:32 Resp BP 121/83 06/16/22 14:32 Pulse Ox FiO2 Intake & Output 06/15/22 06/16/22 06/16/22 18:59 06:59 18:59 Weight 74.843 kg Assessment/Plan Plan: Date: 06/16/22 Initial Weight: 96.162 kg Initial BMI: 36.6 Current Weight: 74.843 kg Current BMI: 28.5 Type of Surgery: Total Volume in Band: Previous Volume: Volume Removed: Volume Added: Band Size:
[2022-06-16 17:37] LABS: Partial Thromboplastin Time 23.1 sec (22.0-30.0); Prothrombin Time 10.3 sec (9.0-12.0)
[2022-06-17 02:19] LABS: HCT 44.4 % (37.2-46.3); HGB 14.5 g/dL (12.0-15.0); MCH 29.7 pg (27.0-32.0); MCHC 32.7 g/dL (32.0-37.0); Mean Platelet Volume 10.2 fL (9.5-12.2); NRBC Per 100 WBC 0 /100 WBCS (0.0-0.0); Platelet Count 240 X 10*3/uL (140-440); RBC 4.88 X 10*6/uL (4.10-5.20); RDW 12.8 % (11.5-14.5); WBC 6.47 X 10*3/uL (4.50-10.00)
[2022-06-17 03:21] LABS: % Iron Saturation 12.82 (12.00-45.00); ALT 23 U/L (8-44); AST 27 U/L (13-35); African American GFR (CKD) 116.3 (60.0-200.0); Albumin 4.7 g/dL (3.8-4.9); Alkaline Phosphatase 81 U/L (41-126); BUN/Creat Ratio 29.35 Ratio (12.00-20.00); Blood Urea Nitrogen 20.9 mg/dL (9.0-27.0); Calcium 9.9 mg/dL (8.7-10.3); Carbon Dioxide 25.7 mmol/L (20.0-27.5); Chloride 103 mmol/L (96-109); Globulin 2.4 g/dL (1.6-3.3); Glucose 79 mg/dL (70-110); Iron 49 ug/dL (50-170); Magnesium 2.4 mg/dL (1.5-2.4); Non-African American GFR(CKD) 100.4 (60.0-200.0); Potassium 4.2 mmol/L (3.5-5.5); Sodium 141 mmol/L (135-145); Total Iron Binding Capacity 381 ug/dL (228-460); Total Protein 7.1 g/dL (6.2-8.2)
[2022-06-17 04:59] LABS: Chol/HDL Ratio 4.39 Ratio; LDL Cholesterol,Calculated 142.9 mg/dL (0.0-131.0)
[2022-06-18 07:26] LABS: Zinc, Serum 66 ug/dL (60-130)
== END ==
LOC: BARWHC3 13:57
PROVIDERS: ATTEND Surgery Plastic and Reconstructive Surgery
DX: E66.01 Morbid (severe) obesity due to excess calories (principal); E89.1 Postprocedural hypoinsulinemia; D50.8 Other iron deficiency anemias; D50.9 Iron deficiency anemia, unspecified; E44.0 Moderate protein-calorie malnutrition; E44.1 Mild protein-calorie malnutrition; E45 Retarded development following protein-calorie malnutrition; E55.9 Vitamin D deficiency, unspecified; K74.1 Hepatic sclerosis; N19 Unspecified kidney failure; T56.894A Toxic effect of other metals, undetermined, initial encounter; Z68.28 Body mass index [BMI] 28.0-28.9, adult
CPT/HCPCS: 80053; 80061; 82306; 82525; 82607; 82728; 82746; 83036; 83540; 83550; 83735; 83970; 84100; 84134; 84255; 84425; 84443; 84590; 84630; 85027; 85610; 85730; 97803; 99211

== ENCOUNTER 2022-07-04 14:02 | Emergency (ER) | payer BC, OTHER ==
[2022-07-04 14:33] VITALS: TEMP 98.1
--- NOTE | 2022-07-04 14:55 | XR ---
EXAMINATION TYPE: XR ankle complete LT, XR foot complete LT DATE OF EXAM: 07/04/2022 CLINICAL HISTORY: Pain after fall injury. TECHNIQUE: Frontal, lateral and oblique images of the left ankle and foot are obtained. COMPARISON: None. FINDINGS: There is no acute fracture/dislocation evident in the left ankle. The ankle mortise appea rs within normal limits. The overlying soft tissue appears unremarkable. There is no acute fracture or dislocation evident in the left foot. The joint spaces in the left sebastian t are preserved. Overlying soft tissue is unremarkable. IMPRESSION: There is no acute fracture or dislocation in the left ankle or foot.
--- NOTE | 2022-07-04 15:25 | ED ---
Lower Extremity Injury HPI - General Chief Complaint: Extremity Injury, Lower Stated Complaint: L foot injury Time Seen by Provider: 07/04/22 14:58 Source: patient, RN notes reviewed Mode of arrival: ambulatory Limitations: no limitations - History of Present Illness Initial Comments: 46-year-old female presents emergency Department chief complaint of left foot injury. Patient states that she was sudden off curb yesterday states that she rolled over her foot. Patient states she has pain with ambulation certain movements. Patient denies any paresthesias. Patient denies prior fractures. - Related Data Home Medications Medication Instructions Recorded Confirmed ALPRAZolam [Xanax] 0.25 - 0.5 mg PO DAILY PRN 07/04/17 06/16/22 Escitalopram [Lexapro] 10 mg PO DAILY 07/01/21 06/16/22 Calcium Citrate 250 mg PO DAILY 12/23/21 06/16/22 Vitamin C/Biotin [Hair, Skin and 1 tab PO DAILY 12/23/21 06/16/22 Nails Chew] Multivit/Iron Sulf/Folic Acid 1 each PO DAILY 03/10/22 06/16/22 [Multivitamin with Iron] Vitamin A 2,400 mcg PO DAILY 03/10/22 06/16/22 Allergies Allergy/AdvReac Type Severity Reaction Status Date / Time sulfamethoxazole Allergy Rash/Hives Verified 07/04/22 14:33 [From Bactrim] trimethoprim [From Bactrim] Allergy Rash/Hives Verified 07/04/22 14:33 Review of Systems ROS Statement: Those systems with pertinent positive or pertinent negative responses have been documented in the HPI. ROS Other: All systems not noted in ROS Statement are negative. Past Medical History Past Medical History: GERD/Reflux, Osteoarthritis (OA) History of Any Multi-Drug Resistant Organisms: None Reported Past Surgical History: Back Surgery, Bariatric Surgery, Section, Hysterectomy, Orthopedic Surgery Additional Past Surgical History / Comment(s): nasal surgery, right shoulder rotator cuff surgery, C/S x 2, left thumb surgery, gastric sleeve 11/16/21 Past Anesthesia/Blood Transfusion Reactions: No Reported Reaction Past Psychological History: Anxiety, Depression Smoking Status: Never smoker Past Alcohol Use History: Occasional Past Drug Use History: None Reported - Past Family History Father Family Medical History: Cancer Additional Family Medical History / Comment(s): lung cancer General Exam Limitations: no limitations General appearance: alert, in no apparent distress Head exam: Present: atraumatic, normocephalic, normal inspection Eye exam: Present: normal appearance, PERRL, EOMI. Absent: scleral icterus, conjunctival injection, periorbital swelling Respiratory exam: Present: normal lung sounds bilaterally. Absent: respiratory distress, wheezes, rales, rhonchi, stridor Cardiovascular Exam: Present: regular rate, normal rhythm, normal heart sounds. Absent: systolic murmur, diastolic murmur, rubs, gallop, clicks Extremities exam: Present: other (There is tenderness at the left foot along the calcaneus, mid foot, neurovascular intact no malleoli tenderness) Course Vital Signs 07/04/22 14:31 Temperature 98.1 F Pulse Rate 82 Respiratory 20 Rate Blood Pressure 119/78 O2 Sat by Pulse 97 Oximetry Medical Decision Making - Medical Decision Making Was pt. sent in by a medical professional or institution (, PA, RECREATION THERAPY AIDES TEACHER, urgent care, hospital, or usp...) When possible be specific @ -No Did you speak to anyone other than the patient for history (EMS, parent, family, police, friend...)? What history was obtained from this source @ -No Did you review nursing and triage notes (agree or disagree)? Why? @ -I reviewed and agree with nursing and triage notes Were old charts reviewed (outside hosp., previous admission, EMS record, old EKG, old radiological studies, urgent care reports/EKG's, usp records)? Report findings @ -No old charts were reviewed Differential Diagnosis (chest pain, altered mental status, abdominal pain women, abdominal pain men, vaginal bleeding, weakness, fever, dyspnea, syncope, headache, dizziness, GI bleed, back pain, seizure, CVA, palpatations, mental health, musculoskeletal)? @ -Foot sprain, foot fracture EKG interpreted by me (3pts min.). @ -None X-rays interpreted by me (1pt min.). @ -X-ray left ankle shows no acute fracture dislocation, x-ray 3 view foot shows no acute fracture dislocation CT interpreted by me (1pt min.). @ -None done U/S interpreted by me (1pt. min.). @ -None done What testing was considered but not performed or refused? (CT, X-rays, U/S, labs)? Why? @ -None What meds were considered but not given or refused? Why? @ -None Did you discuss the management of the patient with other professionals (nate copeland i.e., Dr., PA, RECREATION THERAPY AIDES TEACHER, lab, RT, psych nurse, foster care social worker, store specialist, teacher, logistics supply officer, caser in)? Give summary @ -No Was smoking cessation discussed for >3mins.? @ -No Was critical care preformed (if so, how long)? @ -No Were there social determinants of health that impacted care today? How? (Homelessness, low income, unemployed, alcoholism, drug addiction, transportation, low edu. Level, literacy, decrease access to med. care, senior care, rehab)? @ -No Was there de-escalation of care discussed even if they declined (Discuss DNR or withdrawal of care, Hospice)? DNR status @ -No What co-morbidities impacted this encounter? (DM, HTN, Smoking, COPD, CAD, Cancer, CVA, ARF, Chemo, Hep., AIDS, mental health diagnosis, sleep apnea, morbid obesity)? @ -None Was patient admitted / discharged? Hospital course, mention meds given and route, prescriptions, significant lab abnormalities, going to OR and other pertinent info. @ -Discharged patient x-rays were negative for acute fracture. Patient left foot sprain. Patient was discharged in stable condition. Patient has knee scooter in the room will be discharged to follow-up with orthopedics Undiagnosed new problem with uncertain prognosis? @ -No Drug Therapy requiring intensive monitoring for toxicity (Heparin, Nitro, Insulin, Cardizem)? @ -No Were any procedures done? @ -No Diagnosis/symptom? @ -Left foot sprain Acute, or Chronic, or Acute on Chronic? @ -Acute Uncomplicated (without systemic symptoms) or Complicated (systemic symptoms)? @ -Uncomplicated Side effects of treatment? @ -No Exacerbation, Progression, or Severe Exacerbation? @ -No Poses a threat to life or bodily function? How? (Chest pain, USA, AR, pneumonia, PE, COPD, DKA, ARF, appy, cholecystitis, CVA, Diverticulitis, Homicidal, Suicidal, threat to staff... and all critical care pts) @ -No Disposition Clinical Impression: Sprain of left foot Disposition: HOME SELF-CARE Condition: Stable Instructions (If sedation given, give patient instructions): Foot Sprain (ED) Additional Instructions: Please return to the Emergency Department if symptoms worsen or any other concerns. Is patient prescribed a controlled substance at d/c from ED?: No Referrals: Angel Gaxiola DO [Primary Care Provider] - 1-2 days Time of Disposition: 15:25
[2022-07-04 16:18] VITALS: BP 128/80; PULSE 67; RESP 18
== END 2022-07-04 16:18 | disposition home or self-care (01) ==
LOC: EC 14:02
DX: S93.602A Unspecified sprain of left foot, initial encounter (principal); M19.90 Unspecified osteoarthritis, unspecified site; F41.9 Anxiety disorder, unspecified; F32.A Depression, unspecified; Z79.1 Long term (current) use of non-steroidal anti-inflammatories (NSAID); Z88.2 Allergy status to sulfonamides; Z88.1 Allergy status to other antibiotic agents; Z79.899 Other long term (current) drug therapy; X50.0XXA Overexertion from strenuous movement or load, initial encounter
CPT/HCPCS: 99283

== ENCOUNTER → 2022-10-06 | Outpatient (CLI) | payer BC, OTHER ==
[2022-10-06 14:17] VITALS: BP 121/63; PULSE 79; TEMP 98.1; BMI 29.2
--- NOTE | 2022-10-06 15:19 | P.BASOAP ---
Subjective Progress Note Date: 10/06/22 She looks fablulous. She is on lexapro. REcommend food management. REcommend labs. GERD. Objective - Vital Signs Vital signs: Vital Signs Temp 98.1 F 10/06/22 14:15 Pulse 79 10/06/22 14:15 Resp BP 121/63 10/06/22 14:15 Pulse Ox FiO2 Intake & Output 10/05/22 10/06/22 10/06/22 18:59 06:59 18:59 Weight 76.657 kg Assessment/Plan Plan: Date: 10/06/22 Initial Weight: 96.162 kg Initial BMI: 36.6 Current Weight: 76.657 kg Current BMI: 29.2 Type of Surgery: Total Volume in Band: Previous Volume: Volume Removed: Volume Added: Band Size:
[2022-10-06 16:33] LABS: Partial Thromboplastin Time 23.6 sec (22.0-30.0); Prothrombin Time 10.3 sec (9.0-12.0)
[2022-10-06 19:47] LABS: HCT 41.6 % (37.2-46.3); HGB 13.3 d/dL (12.0-15.0); MCH 29.6 pg (27.0-32.0); MCV 92.4 FL (80.0-97.0); Mean Platelet Volume 9.8 FL (9.5-12.2); NRBC Per 100 WBC 0 X 10*3/uL (0.00-0.01); Platelet Count 241 X 10*3/uL (140-440); RDW 12.8 % (11.5-14.5); WBC 6.74 X 10*3/uL (4.50-10.00)
[2022-10-06 20:07] LABS: Prealbumin 23.6 mg/dL (18.0-42.0)
[2022-10-06 20:27] LABS: % Iron Saturation 25.27 (12.00-45.00); ALT 27 U/L (8-44); AST 27 U/L (13-35); Albumin 4.7 d/dL (3.8-4.9); Albumin/Globulin Ratio 1.96 Ratio (1.60-3.17); Alkaline Phosphatase 77 U/L (41-126); BUN/Creat Ratio 27.75 Ratio (12.00-20.00); Blood Urea Nitrogen 22.2 mg/dL (9.0-27.0); Calcium 10.1 mg/dL (8.7-10.3); Carbon Dioxide 23.4 mmol/L (21.6-31.8); Chloride 101 mmol/L (96-109); Chol/HDL Ratio 3.61 Ratio; Ferritin 81.6 ng/mL (10.0-291.0); Globulin 2.4 d/dL (1.6-3.3); Glucose 93 mg/dL (70-110); Iron 92 UG/DL (50-170); LDL Cholesterol,Calculated 147.6 mg/dL (0.0-131.0); Phosphorus 4.2 mg/dL (2.4-5.1); Potassium 4.2 mmol/L (3.5-5.5); Sodium 138 mmol/L (135-145); Total Bilirubin 0.4 mg/dL (0.3-1.2); Total Iron Binding Capacity 364 UG/DL (228-460); Total Protein 7.1 d/dL (6.2-8.2)
[2022-10-08 06:19] LABS: Vit B1(Thiamine) 109 ug/L (38-122)
[2022-10-08 13:07] LABS: Vitamin A 60 ug/dL (38-106)
[2022-10-11 07:21] LABS: Zinc, Serum 72 ug/dL (60-130)
[2022-10-20 15:36] LABS: Selenium 139 mcg/L (63-160)
== END ==
LOC: BARWHC3 13:55
PROVIDERS: ATTEND Surgery Plastic and Reconstructive Surgery
DX: Z53.9 Procedure and treatment not carried out, unspecified reason (principal)
CPT/HCPCS: 80053; 80061; 82306; 82525; 82607; 82728; 82746; 83036; 83540; 83550; 83735; 83970; 84100; 84134; 84255; 84425; 84443; 84590; 84630; 85027; 85610; 85730; 99211

== ENCOUNTER → 2022-11-24 | Outpatient (CLI) | payer BC, OTHER ==
[2022-11-24 14:36] VITALS: BP 134/84; PULSE 89; RESP 13; TEMP 98.1; BMI 29.0
--- NOTE | 2022-11-24 15:01 | P.BASOAP ---
Subjective Progress Note Date: 11/24/22 DATE OF SERVICE: 11/24/22 CHIEF COMPLAINT: Status post sleeve gastrectomy HISTORY OF PRESENT ILLNESS: Dulce Victoria is a 47-year-old female status post sleeve gastrectomy 11/16/2021. She is 1 year out. She is stable with her weight loss. She is frustrated as she is looking into additional weight loss. She is having bowel movements. She is not doing cardio for exercise. She recently broke her foot. She is having heartburn. She is under BMI of 30. She reports worsening heartburn and abdominal pain after eating avocado. She presents due to worsening reflux and abdominal pain. At height of 5 feet 3.75 inches, her ideal body weight is 140 pounds. Her highest weight is 287 pounds, body mass index 49.8. She comes in 160 pounds from 214 pounds, 1 year ago. She has lost 46 pounds in 1 year. Her body mass index is 29.1. Lifetime weight loss 119 pounds. Percent excess weight loss lifetime 81%. She is 28 pounds overweight. PAST MEDICAL HISTORY: 1. Morbid obesity due to excess calories, BMI 49.8 2. Gastroesophageal reflux disease 3. Osteoarthritis hip, left 4. Osteoarthritis feet, left 5. Neuropathy 6. Chronic fatigue PAST SURGICAL HISTORY: 1. Back surgery 2. Hysterectomy 3. Shoulder surgery, right 4. Nasal surgery 5. section HOME MEDICATIONS: Home Medications Medication Instructions Recorded Confirmed ALPRAZolam [Xanax] 0.25 - 0.5 mg PO DAILY PRN 07/04/17 11/24/22 Escitalopram [Lexapro] 10 mg PO DAILY 07/01/21 11/24/22 Calcium Citrate 250 mg PO DAILY 12/23/21 11/24/22 Vitamin C/Biotin [Hair, Skin and 1 tab PO DAILY 12/23/21 11/24/22 Nails Chew] Multivit/Iron Sulf/Folic Acid 1 each PO DAILY 03/10/22 11/24/22 [Multivitamin with Iron] Vitamin A 2,400 mcg PO DAILY 03/10/22 11/24/22 Previous Rx's Medication Instructions Recorded Omeprazole [PriLOSEC] 40 mg PO DAILY #30 cap 11/24/22 ALLERGIES: Allergies Allergy/AdvReac Type Severity Reaction Status Date / Time sulfamethoxazole Allergy Rash/Hives Verified 11/24/22 14:18 [From Bactrim] trimethoprim [From Bactrim] Allergy Rash/Hives Verified 11/24/22 14:18 SOCIAL HISTORY: Denies tobacco use. FAMILY HISTORY: No family history of ulcerative colitis disease or Crohn's disease. Family history of morbid obesity. No lupus in the family. No reports of stomach or esophageal cancer. REVIEW OF ORGAN SYSTEMS: CONSTITUTIONAL: At height of 5 feet 3.75 inches, her ideal body weight is 140 pounds. Her highest weight is 287 pounds, body mass index 49.8. HEENT: Denies any active troubles with vision or hearing. ENDOCRINE: Denies diabetes. Denies hypothyroidism. CARDIOVASCULAR: Denies past reports of palpitations or heart attacks or chest pain. RESPIRATORY: Has daytime somnolence and snores. GASTROINTESTINAL: Denies any bright red blood per rectum. No diarrhea. No constipation. Has gastroesophageal reflux disease. GENITOURINARY: Denies bladder urgency. No recent blood in urine MUSCULOSKELETAL: Has lower back pain and joint pain. NEURO: Denies migraines. No seizure disorders. PSYCH: Has depression. No suicidal ideation. Has anxiety. RHEUMATOLOGIC: No lupus. No rheumatoid arthritis. HEMATOLOGIC: Denies any abnormal bleeding or bruising. Denies past history of DVTs. SKIN: No rash. No skin cancer. PHYSICAL EXAM: VITAL SIGNS: Height 5 foot 3.75 inches, weight 168 pounds. BMI 29.1 Vital Signs Temp 98.1 F 11/24/22 14:17 Pulse 89 11/24/22 14:17 Resp 13 11/24/22 14:17 BP 134/84 11/24/22 14:17 Pulse Ox FiO2 GENERAL: Well-developed in no acute distress. HEENT: No scleral icterus. Extraocular movements grossly intact. Hears conversational speech. No nasal drainage. NECK: Supple without lymphadenopathy. CHEST: Nonlabored respirations with equal bilateral excursions. CARDIOVASCULAR: Regular rate and regular rhythm. Distal 2+ pulses. ABDOMEN: Obese, soft, nontender, nondistended. MUSCULOSKELETAL: No clubbing, cyanosis. NEURO: No focal or lateralizing signs. Cranial nerves 2 through 12 grossly within normal limits. PSYCH: Appropriate affect. Alert and oriented to person, place and time. SKIN: Good skin turgor. Well perfused. ASSESSMENT: 1. Morbid obesity due to excess calories, BMI 37.0 2. Gastroesophageal reflux disease 3. Osteoarthritis hip, left 4. Osteoarthritis feet, left 5. Neuropathy 6. Chronic fatigue 7. Abnormal EKG 8. Hyperlipidemia 9. Copper deficiency 10. Gastroesophageal reflux disease with erosive esophagitis 11. Chronic gastritis 12. Sigmoid diverticulosis 13. Tubular adenoma of the colon 14. Status post sleeve gastrectomy 15. Gallbladder disorder 16. Right upper quadrant abdominal pain PLAN: 1. Recommend gallbladder ultrasound due to worsening abdominal pain after eating fatty foods such as avocado. 2. Omeprazole prescription 40 mg daily prescribed 3. Recommend bariatric labs Objective - Vital Signs Vital signs: Vital Signs Temp 98.1 F 11/24/22 14:17 Pulse 89 11/24/22 14:17 Resp 13 11/24/22 14:17 BP 134/84 11/24/22 14:17 Pulse Ox FiO2 Intake & Output 11/23/22 11/24/22 11/24/22 18:59 06:59 18:59 Weight 76.204 kg Assessment/Plan Plan: Date: 11/24/22 Initial Weight: 96.162 kg Initial BMI: 36.6 Current Weight: 76.204 kg Current BMI: 29.0 Type of Surgery: Total Volume in Band: Previous Volume: Volume Removed: Volume Added: Band Size:
== END ==
LOC: BARWHC3 14:00
PROVIDERS: ATTEND Surgery Plastic and Reconstructive Surgery
DX: M16.12 Unilateral primary osteoarthritis, left hip (principal); E66.01 Morbid (severe) obesity due to excess calories; G62.9 Polyneuropathy, unspecified; M19.072 Primary osteoarthritis, left ankle and foot; R53.82 Chronic fatigue, unspecified; E78.5 Hyperlipidemia, unspecified; K29.50 Unspecified chronic gastritis without bleeding; K57.30 Diverticulosis of large intestine without perforation or abscess without bleeding; K21.00 Gastro-esophageal reflux disease with esophagitis, without bleeding; R94.31 Abnormal electrocardiogram [ECG] [EKG]; E61.0 Copper deficiency; D12.6 Benign neoplasm of colon, unspecified; K82.9 Disease of gallbladder, unspecified; R10.11 Right upper quadrant pain; Z98.84 Bariatric surgery status; Z88.2 Allergy status to sulfonamides; Z88.1 Allergy status to other antibiotic agents; Z68.37 Body mass index [BMI] 37.0-37.9, adult
CPT/HCPCS: 97803; 99211

== ENCOUNTER → 2022-12-24 | Outpatient (CLI) | payer BC, OTHER ==
[2022-12-24 10:05] LABS: INR 0.9 (<1.2); Partial Thromboplastin Time 24.9 sec (22.0-30.0); Prothrombin Time 10.5 sec (10.0-12.5)
[2022-12-24 15:59] LABS: HCT 40.4 % (37.2-46.3); HGB 13.8 g/dL (12.0-15.0); MCH 30.4 pg (27.0-32.0); MCHC 34.2 g/dL (32.0-37.0); Mean Platelet Volume 9.9 FL (9.5-12.2); NRBC Per 100 WBC 0 X 10*3/uL (0.00-0.01); Platelet Count 235 X 10*3/uL (140-440); RBC 4.54 X 10*6/uL (4.10-5.20); RDW 12.5 % (11.5-14.5)
[2022-12-24 16:44] LABS: Prealbumin 25.4 mg/dL (18.0-42.0)
[2022-12-24 17:08] LABS: % Iron Saturation 32.01 (12.00-45.00); ALT 22 U/L (8-44); AST 24 U/L (13-35); Albumin 4.8 g/dL (3.8-4.9); Albumin/Globulin Ratio 2.09 Ratio (1.60-3.17); Alkaline Phosphatase 74 U/L (41-126); BUN/Creat Ratio 24.88 Ratio (12.00-20.00); Blood Urea Nitrogen 19.9 mg/dL (9.0-27.0); Calcium 10.4 mg/dL (8.7-10.3); Carbon Dioxide 27.2 mmol/L (21.6-31.8); Chloride 102 mmol/L (96-109); Chol/HDL Ratio 3.71 Ratio; Globulin 2.3 g/dL (1.6-3.3); Glucose 94 mg/dL (70-110); Iron 113 UG/DL (50-170); LDL Cholesterol,Calculated 158.5 mg/dL (0.0-131.0); Magnesium 2.1 mg/dL (1.5-2.4); Phosphorus 4.2 mg/dL (2.4-5.1); Potassium 4.5 mmol/L (3.5-5.5); Sodium 140 mmol/L (135-145); Total Bilirubin 0.5 mg/dL (0.3-1.2); Total Iron Binding Capacity 353 UG/DL (228-460); Total Protein 7.1 g/dL (6.2-8.2)
== END | disposition home or self-care (01) ==
LOC: LABWHC1 07:56
PROVIDERS: ATTEND Surgery Plastic and Reconstructive Surgery
DX: E66.01 Morbid (severe) obesity due to excess calories (principal); E89.1 Postprocedural hypoinsulinemia; D50.8 Other iron deficiency anemias; K90.89 Other intestinal malabsorption; N19 Unspecified kidney failure; K74.1 Hepatic sclerosis; T56.894A Toxic effect of other metals, undetermined, initial encounter; K50.90 Crohn's disease, unspecified, without complications; E55.9 Vitamin D deficiency, unspecified
CPT/HCPCS: 36415; 80053; 80061; 82306; 82525; 82607; 82728; 82746; 83036; 83540; 83550; 83735; 83970; 84100; 84134; 84255; 84425; 84443; 84590; 84630; 85027; 85610; 85730

== ENCOUNTER → 2023-01-05 | Outpatient (CLI) | payer BC, OTHER ==
--- NOTE | 2023-01-08 16:58 | MM ---
Reason for Exam: Screening (asymptomatic). Last screening mammogram was performed 12 month(s) ago. Patient History: Menarche at age 10. First Full-Term at age 20. Hysterectomy at age 35. Postmenopausal. Patient has history of breast feeding. Risk Values: Darby 5 year model risk: 0.8%. NCI Lifetime model risk: 8.2%. Prior Study Comparison: 11/30/2019 Bilateral Screening Mammogram, [facility]. 01/01/2021 Bilateral Screening Mammogram, [facility]. 01/04/2022 Bilateral MG 3D screening mammo w/cad, [facility]. Tissue Density: There are scattered fibroglandular densities. Findings: Analyzed By CAD. Unchanged area of asymmetric density on each MLO view. There is no suspicious group of microcalcifications or new suspicious mass in either breast. Overall Assessment: Benign, BI-RAD 2 Management: Screening Mammogram of both breasts in 1 year. . Patient should continue monthly self-breast exams. A clinical breast exam by your physician is recommended on an annual basis. This exam should not preclude additional follow-up of suspicious palpable abnormalities. Note on Darby scores and lifetime risk: 1. A Darby score greater than 3% is considered moderate risk. If this is the case, consider specialist referral to assess eligibility for a risk reducing agent. 2. If overall lifetime risk for the development of breast cancer is 20% or higher, the patient may qualify for future screening with alternating mammogram and breast MRI. Electronically signed and approved by: Venus Garland M.D. Radiologist
== END | disposition home or self-care (01) ==
LOC: RADMAMWWP 07:28
PROVIDERS: ATTEND Obstetrics & Gynecology
DX: Z12.31 Encounter for screening mammogram for malignant neoplasm of breast (principal); Z78.0 Asymptomatic menopausal state
CPT/HCPCS: 77063; 77067

== ENCOUNTER → 2023-03-02 | Outpatient (CLI) | payer BC, OTHER ==
--- NOTE | 2023-03-02 18:28 | BD ---
EXAMINATION TYPE: Axial Bone Density DATE OF EXAM: 03/02/2023 CLINICAL HISTORY: 47 years old Female. ICD-10 CODE: Z78.0 ASYMPTOMATIC MENOPAUSAL STATE Height: 63 Weight: 166.5 FRAX RISK QUESTIONS: Alcohol (3 or more units per day): no Family History (Parent hip fracture): no Glucocorticoids (More than 3mos): no (Ex: prednisone, prednisolone, methylprednisolone, dexamethasone, and hydrocortisone). History of Fracture in Adulthood: yes Secondary Osteoporosis: 1. Type 1 Diabetes: no 2. Hyperthyroidism: no 3. Menopause before 45: yes 4. Malnutrition: no 5. Chronic liver disease: no Rheumatoid Arthritis: no Current Tobacco Use: no RISK FACTORS HISTORY OF: Surgery to Spine/Hip(right/left)/Wrist (right/left): lumbar spine surgery When: 2018 Additional History: EXAM MEASUREMENTS: Bone mineral densitometry was performed using the [email or web address] System. Bone mineral density about the R hip (g/cm2): 0.834 Bone mineral density about the L hip (g/cm2): 0.761 T Score values are as follows: -----R Neck: -1.9 -----L Neck: -2.1 -----R Total: -1.4 -----L Total: -2.0 Z Score values are as follows: -----R Neck: -1.4 -----L Neck: -1.6 -----R Total: -1.2 -----L Total: -1.8 Bone mineral density : baseline Bone mineral density about the L Wrist (g/cm2): 0.734 T Score values are as follows: -----Dist. R+U: -0.5 -----Prox. R+U: 1.0 -----Radius total: 1.0 Z Score values are as follows: -----Dist. R+U: -0.5 -----Prox. R+U: 1.0 -----Radius total: 1.0 Bone mineral density : baseline FRAX%s: The graph provided illustrates a 9.8 % chance for a major osteoporotic fx and a 1.8% chance f or the hips probability for fx in 10 years time. IMPRESSION: Osteopenia (T Score between -2.5 and -1). There is slightly increased risk of fracture and the patient may be considered for treatment. Re-Screen 2-5 years. NOTE: T-SCORE=SD OF THE YOUNG ADULT MEAN.
== END | disposition home or self-care (01) ==
LOC: RADBDWWP 09:03
PROVIDERS: ATTEND Family Medicine
DX: M85.89 Other specified disorders of bone density and structure, multiple sites (principal); Z78.0 Asymptomatic menopausal state
CPT/HCPCS: 77080

== ENCOUNTER 2023-08-07 08:04 | Emergency (ER) | payer BC, OTHER ==
[2023-08-07 08:07] VITALS: TEMP 97.8
--- NOTE | 2023-08-07 08:21 | ED ---
General Adult HPI - General Chief complaint: Abdominal Pain Stated complaint: kidney stone Time Seen by Provider: 08/07/23 08:06 Source: patient, RN notes reviewed Mode of arrival: ambulatory Limitations: no limitations - History of Present Illness Initial comments: Patient is a 47-year-old female present to the emergency department with concerns for kidney stone. Patient has had urinary frequency and urgency for the past 3 days. Patient thought she may have a bladder infection. Patient looked in her portal and had stated no infection. Patient was placed on antibiotics by her primary care doctor. Patient states this morning she had sudden increase in pain left posterior flank, rating towards anterior. Patient does have history of similar episode once previously associated with kidney stone. Patient does have nausea and has had a little bit of emesis. No constipation or diarrhea. No fever. - Related Data Home Medications Medication Instructions Recorded Confirmed ALPRAZolam [Xanax] 0.25 - 0.5 mg PO DAILY PRN 07/04/17 11/24/22 Escitalopram [Lexapro] 10 mg PO DAILY 07/01/21 11/24/22 Calcium Citrate 250 mg PO DAILY 12/23/21 11/24/22 Vitamin C/Biotin [Hair, Skin and 1 tab PO DAILY 12/23/21 11/24/22 Nails Chew] Multivit/Iron Sulf/Folic Acid 1 each PO DAILY 03/10/22 11/24/22 [Multivitamin with Iron] Vitamin A 2,400 mcg PO DAILY 03/10/22 11/24/22 Previous Rx's Medication Instructions Recorded Omeprazole [PriLOSEC] 40 mg PO DAILY #30 cap 11/24/22 Ketorolac [Toradol] 10 mg PO Q6HR PRN #15 tab 08/07/23 Metoclopramide HCl [Reglan] 10 mg PO Q6HR PRN #15 tablet 08/07/23 Allergies Allergy/AdvReac Type Severity Reaction Status Date / Time sulfamethoxazole Allergy Rash/Hives Verified 08/07/23 08:07 [From Bactrim] trimethoprim [From Bactrim] Allergy Rash/Hives Verified 08/07/23 08:07 Review of Systems ROS Statement: Those systems with pertinent positive or pertinent negative responses have been documented in the HPI. ROS Other: All systems not noted in ROS Statement are negative. Constitutional: Denies: fever Eyes: Denies: eye pain ENT: Denies: ear pain Respiratory: Denies: cough Cardiovascular: Denies: chest pain Gastrointestinal: Reports: as per HPI, nausea, vomiting Genitourinary: Reports: urgency, frequency. Denies: dysuria Musculoskeletal: Reports: as per HPI Skin: Denies: rash Past Medical History Past Medical History: GERD/Reflux, Osteoarthritis (OA) History of Any Multi-Drug Resistant Organisms: None Reported Past Surgical History: Back Surgery, Section, Hysterectomy, Orthopedic Surgery Additional Past Surgical History / Comment(s): nasal surgery, right shoulder rotator cuff surgery, C/S x 2, left thumb surgery Past Anesthesia/Blood Transfusion Reactions: No Reported Reaction Past Psychological History: Anxiety, Depression Smoking Status: Never smoker Past Alcohol Use History: Occasional Past Drug Use History: None Reported - Past Family History Father Family Medical History: Cancer Additional Family Medical History / Comment(s): lung cancer General Exam Limitations: no limitations General appearance: alert Head exam: Present: normocephalic Eye exam: Present: normal appearance Neck exam: Present: normal inspection Respiratory exam: Present: normal lung sounds bilaterally Cardiovascular Exam: Present: regular rate, normal rhythm Expanded Peripheral pulses: 2+: Posterior Tibialis (R), Posterior Tibialis (L) GI/Abdominal exam: Present: soft. Absent: distended, tenderness Extremities exam: Present: normal inspection Back exam: Present: normal inspection. Absent: tenderness Neurological exam: Present: alert. Absent: motor sensory deficit Psychiatric exam: Present: normal affect, normal mood Skin exam: Present: normal color Course Vital Signs 08/07/23 08:06 Temperature 97.8 F Pulse Rate 85 Respiratory 18 Rate Blood Pressure 148/79 O2 Sat by Pulse 100 Oximetry Medical Decision Making - Medical Decision Making Was pt. sent in by a medical professional or institution (, PA, APPLICATIONS PROCESSOR, urgent care, hospital, or [place] health care facility...) When possible be specific @ -No Did you speak to anyone other than the patient for history (EMS, parent, family, police, friend...)? What history was obtained from this source @ -No Did you review nursing and triage notes (agree or disagree)? Why? @ -I reviewed and agree with nursing and triage notes Were old charts reviewed (outside hosp., previous admission, EMS record, old EKG, old radiological studies, urgent care reports/EKG's, [place] health care facility records)? Report findings @ -No old charts were reviewed Differential Diagnosis (chest pain, altered mental status, abdominal pain women, abdominal pain men, vaginal bleeding, weakness, fever, dyspnea, syncope, headache, dizziness, GI bleed, back pain, seizure, CVA, palpatations, mental health, musculoskeletal)? @ -Differential Abdominal Pain Women: Appendicitis, Cholecystitis, diverticulosis, ischemic bowel, pancreatitis, hepatitis, UTI, gastroenteritis, AAA, incarcerated hernia, bowel obstruction, constipation, inflammatory bowel, hepatitis, peptic ulcer disease, splenic infarction, perforated viscus, vulvitis, ovarian torsion, PID, kidney stone, placenta abruption, this is not meant to be an all-inclusive list EKG interpreted by me (3pts min.). @ -As above X-rays interpreted by me (1pt min.). @ -None done CT interpreted by me (1pt min.). @ -CT scan abdomen pelvis shows 2 mm stone distal ureter, left UVJ with mild hydro U/S interpreted by me (1pt. min.). @ -None done What testing was considered but not performed or refused? (CT, X-rays, U/S, labs)? Why? @ -None What meds were considered but not given or refused? Why? @ -None Did you discuss the management of the patient with other professionals (professionals i.e. , PA, APPLICATIONS PROCESSOR, lab, RT, psych nurse, social work specialist, robotic machine tender production, teacher, child support case officer, counseling case manager)? Give summary @ -No Was smoking cessation discussed for >3mins.? @ -No Was critical care preformed (if so, how long)? @ -No Were there social determinants of health that impacted care today? How? (Homelessness, low income, unemployed, alcoholism, drug addiction, transportation, low edu. Level, literacy, decrease access to med. care, penitentiary, rehab)? @ -No Was there de-escalation of care discussed even if they declined (Discuss DNR or withdrawal of care, Hospice)? DNR status @ -No What co-morbidities impacted this encounter? (DM, HTN, Smoking, COPD, CAD, Cancer, CVA, ARF, Chemo, Hep., AIDS, mental health diagnosis, sleep apnea, morbid obesity)? @ -None Was patient admitted / discharged? Hospital course, mention meds given and route, prescriptions, significant lab abnormalities, going to OR and other pertinent info. @ -Patient reevaluated twice. Patient significantly improved. Patient is updated on results and plan. Undiagnosed new problem with uncertain prognosis? @ -No Drug Therapy requiring intensive monitoring for toxicity (Heparin, Nitro, Insulin, Cardizem)? @ -No Were any procedures done? @ -No Diagnosis/symptom? @ -Ureterolithiasis Acute, or Chronic, or Acute on Chronic? @ -Acute Uncomplicated (without systemic symptoms) or Complicated (systemic symptoms)? @ -Complicated with mild hydronephrosis Side effects of treatment? @ -No Exacerbation, Progression, or Severe Exacerbation? @ -No Poses a threat to life or bodily function? How? (Chest pain, [place], [place], pneumonia, PE, COPD, DKA, ARF, appy, cholecystitis, CVA, Diverticulitis, Homicidal, Suicidal, threat to staff... and all critical care pts) @ -No - Lab Data Result diagrams: 08/07/23 08:52 08/07/23 08:52 Lab Results 08/07/23 08/07/23 08/07/23 Range/Units 08:52 08:52 08:52 WBC 7.2 (3.8-10.6) k/uL RBC 4.35 (3.80-5.40) m/uL Hgb 13.1 (11.4-16.0) gm/dL Hct 39.8 (34.0-46.0) % MCV 91.4 (80.0-100.0) fL MCH 30.1 (25.0-35.0) pg MCHC 32.9 (31.0-37.0) g/dL RDW 12.1 (11.5-15.5) % Plt Count 249 (150-450) k/uL MPV 7.5 Neutrophils % 69 % Lymphocytes % 23 % Monocytes % 3 % Eosinophils % 2 % Basophils % 0 % Neutrophils # 5.0 (1.3-7.7) k/uL Lymphocytes # 1.7 (1.0-4.8) k/uL Monocytes # 0.2 (0-1.0) k/uL Eosinophils # 0.1 (0-0.7) k/uL Basophils # 0.0 (0-0.2) k/uL Sodium 138 (137-145) mmol/L Potassium 3.9 (3.5-5.1) mmol/L Chloride 109 H (98-107) mmol/L Carbon Dioxide 20 L (22-30) mmol/L Anion Gap 9 mmol/L BUN 19 H (7-17) mg/dL Creatinine 0.79 (0.52-1.04) mg/dL Est GFR (CKD-EPI)AfAm >90 (>60 ml/min/1.73 sqM) Est GFR (CKD-EPI)NonAf 89 (>60 ml/min/1.73 sqM) Glucose 106 H (74-99) mg/dL Calcium 10.2 (8.4-10.2) mg/dL Total Bilirubin 0.9 (0.2-1.3) mg/dL AST 32 (14-36) U/L ALT 20 (4-34) U/L Alkaline Phosphatase 87 (38-126) U/L Total Protein 7.3 (6.3-8.2) g/dL Albumin 4.7 (3.5-5.0) g/dL Amylase 63 (30-110) U/L Lipase 110 (23-300) U/L Urine Color Yellow Urine Appearance Clear (Clear) Urine pH 5.5 (5.0-8.0) Ur Specific [place] 1.023 (1.001-1.035) Urine Protein 1+ H (Negative) Urine Glucose (UA) Negative (Negative) Urine Ketones Negative (Negative) Urine Blood Large H (Negative) Urine Nitrite Negative (Negative) Urine Bilirubin Negative (Negative) Urine Urobilinogen <2.0 (<2.0) mg/dL Ur Leukocyte Esterase Small H (Negative) Urine RBC >182 H (0-5) /hpf Urine WBC 18 H (0-5) /hpf Ur Squamous Epith Cells 6 H (0-4) /hpf Urine Mucus Rare H (None) /hpf Disposition Clinical Impression: Kidney stone Disposition: HOME SELF-CARE Condition: Stable Instructions (If sedation given, give patient instructions): Kidney Stones (ED) Additional Instructions: Prescription sent to pharmacy. Please do follow-up with primary care physician in the next couple days for recheck. Return for fever, uncontrolled pain, u ncontrolled vomiting, worsening symptoms or other concerns. Prescriptions: Metoclopramide HCl [Reglan] 10 mg PO Q6HR PRN #15 tablet PRN Reason: Nausea Ketorolac [Toradol] 10 mg PO Q6HR PRN #15 tab PRN Reason: Pain Is patient prescribed a controlled substance at d/c from ED?: No Referrals: Angel Gaxiola DO [Primary Care Provider] - 1-2 days Time of Disposition: 09:45
[2023-08-07] MEDS: KETOROLAC 15 MG/ML 1 ML VIAL IVP STA (08:52)
[2023-08-07] MEDS: SODIUM CHLORIDE 0.9% 1,000 ML IV STA (08:53)
[2023-08-07] MEDS: METOCLOPRAMIDE 5 MG/ML 2 ML VIAL IVP STA (08:53)
[2023-08-07 09:02] LABS: Basophils % (A) 0 %; Eosinophils # (A) 0.1 k/uL (0-0.7); Eosinophils % (A) 2 %; HCT 39.8 % (34.0-46.0); HGB 13.1 gm/dL (11.4-16.0); Lymphocytes # (A) 1.7 k/uL (1.0-4.8); Lymphocytes % (A) 23 %; MCH 30.1 pg (25.0-35.0); MCHC 32.9 g/dL (31.0-37.0); MCV 91.4 fL (80.0-100.0); Mean Platelet Volume 7.5; Monocytes # (A) 0.2 k/uL (0-1.0); Monocytes % (A) 3 %; Neutrophils % (A) 69 %; Platelet Count 249 k/uL (150-450); RBC 4.35 m/uL (3.80-5.40); RDW 12.1 % (11.5-15.5); WBC 7.2 k/uL (3.8-10.6)
[2023-08-07 09:13] LABS: Appearance,Urine Clear (Clear); Bilirubin,Urine Negative (Negative); Blood,Urine Large (Negative); Color,Urine Yellow; Glucose,Urine (UA) Negative (Negative); Ketones,Urine Negative (Negative); Leukocyte Esterase,Urine Small (Negative); Mucus,Urine Rare /hpf; Nitrite,Urine Negative (Negative); PH, Urine 5.5 (5.0-8.0); Protein,Urine 1+ (Negative); RBC,Urine >182 /hpf (0-5); Specific Gravity,Urine 1.023 (1.001-1.035); Squamous Epithelial Cell,Urine 6 /hpf (0-4); Urobilinogen,Urine <2.0 mg/dL (<2.0); WBC,Urine 18 /hpf (0-5)
--- NOTE | 2023-08-07 09:29 | CT ---
EXAMINATION TYPE: CT abdomen pelvis wo con DATE OF EXAM: 08/07/2023 COMPARISON: None INDICATION: LT flank pain, abdominal pain, hx renal stones DLP: 438.9 mGycm, Automated exposure control for dose reduction was used. CONTRAST: 0 mL of Isovue 300. Study performed without Oral Contrast TECHNIQUE: Axial images were obtained from above the diaphragm to the pubic rami in the axial plane a t 5 mm thick sections. Reconstructed images are reviewed on the computer in the coronal plane. FINDINGS: Limited CT sections are obtained the lung bases. The lung bases are clear. CT ABDOMEN: Gastric sleeve is evident. Liver: Normal Spleen: Few scattered calcifications are within the spleen. Pancreas: Normal Adrenal glands: The adrenal glands are normal. Gallbladder: Normal Kidneys: No masses are evident. Minimal left hydronephrosis is present. Mild left hydroureter is pres ent extending to the ureterovesical junction. Partially obstructing 0.2 cm calcification may be prese nt at the left ureterovesical junction. No cysts are present. There is a punctate nonobstructing williams l stone in the inferior pole right kidney. Tiny cortical calcification may be in the posterior latera l wall left kidney, image 55 Delayed images were obtained through the kidneys, which remain unremarka ble. Aorta: Normal Inferior vena cava: Normal. CT PELVIS: Loops of bowel within the abdomen and pelvis are normal. This study is without oral contrast limi ts bowel evaluation. Appendix: Normal as visualized. Urinary bladder: Decompressed with limited evaluation. There is a calcification in the right ureterov esical junction region with transverse dimension of 0.2 cm. Genitourinary structures: Uterus and adnexa appear unremarkable Osseous structures: No suspicious lytic or sclerotic lesions. IMPRESSION: 1. 0.2 cm mildly obstructing distal left ureteral vesicle junction stone with mild left hydroureter and minimal left hydronephrosis.
[2023-08-07 09:30] LABS: ALT 20 U/L (4-34); AST 32 U/L (14-36); African American GFR (CKD) >90 (>60 ml/min/1.73 sqM); Albumin 4.7 g/dL (3.5-5.0); Alkaline Phosphatase 87 U/L (38-126); Amylase 63 U/L (30-110); Anion Gap 9 mmol/L; Blood Urea Nitrogen 19 mg/dL (7-17); Calcium 10.2 mg/dL (8.4-10.2); Carbon Dioxide 20 mmol/L (22-30); Chloride 109 mmol/L (98-107); Glucose 106 mg/dL (74-99); Lipase 110 U/L (23-300); Non-African American GFR(CKD) 89 (>60 ml/min/1.73 sqM); Potassium 3.9 mmol/L (3.5-5.1); Sodium 138 mmol/L (137-145); Total Bilirubin 0.9 mg/dL (0.2-1.3); Total Protein 7.3 g/dL (6.3-8.2)
[2023-08-07 10:35] VITALS: BP 115/70; PULSE 82; RESP 16
== END 2023-08-07 10:35 | disposition home or self-care (01) ==
LOC: EC 08:04
DX: N13.2 Hydronephrosis with renal and ureteral calculous obstruction (principal); Z88.1 Allergy status to other antibiotic agents; Z88.2 Allergy status to sulfonamides
CPT/HCPCS: 36415; 80053; 82150; 83690; 85025; 81001; 74176; 99284; 96374; 96375; 96361 ×2; J2765; J1885; 99283